=== PATIENT | male | born 1955 | race Hispanic/Latino ===

== ENCOUNTER → 2017-05-09 | Outpatient (CLI) | payer OTHER ==
[~2017-05-09] MED LIST: ACTOS30 MG PO; AMLODIPINE BESY10 MG PO; ASPIRIN81 MG PO; DOXYCYCLINE HY100 MG PO; GLIMEPIRIDE4 MG PO; HYDROCHLOROTHIA25 MG PO; KOMBIGLYZE XR1 EAC2 PO; METOPROLOL TART50 MG PO; VASCEPA PO; ZOCOR40 MG PO
--- NOTE | 2017-05-09 12:53 | Diagnostic Imaging Report ---
PROCEDURE: Frontal and lateral views of the chest. COMPARISON: Chest 2 views 10/30/2013. INDICATIONS: MID BACK PAIN FINDINGS: Lines/tubes: None. Lungs: The lungs are well inflated and clear. There is no evidence of pneumonia or pulmonary edema. Pleura: There is no pleural effusion or pneumothorax. Heart and mediastinum: The heart and the mediastinum are normal. Bones: No acute bony abnormality. IMPRESSION: No acute radiographic abnormality. Dictated by: Reji Lujan M.D. on 05/09/2017 at 13:03 Electronically approved by: Reji Lujan M.D. on 05/09/2017 at 13:03
== END ==
LOC: RAD 12:12
PROVIDERS: ATTEND Internal Medicine
DX: G47.33 Obstructive sleep apnea (adult) (pediatric) (principal)
CPT/HCPCS: 71046

== ENCOUNTER → 2018-02-06 | Outpatient (CLI) | payer OTHER ==
--- NOTE | 2018-02-28 15:50 | Polysomnography ---
DATE OF STUDY: February 06, 2018 TITRATION POLYSOMNOGRAM REFERRING PHYSICIAN: Dr. Cristopher Duron. HISTORY: Mr. Zuniga is a pleasant 62-year-old gentleman with snoring and apneas during sleep. The patient had a home sleep study on November 02, 2016 where he was found with obstructive sleep apnea. The apnea-hypopnea index was 12 events per hour. The lowest oxygen saturation was 78% on that study. The patient has past medical history of diabetes, retinopathy, chronic kidney disease, GERD, polyneuropathy, coronary artery disease and stent, anemia. Current medications may include hydrochlorothiazide, Zocor, Glimepiride, Kombiglyze, aspirin, metoprolol, amlodipine, Plavix, lisinopril. The patient's BMI is 36.8. [place] sleepiness scale score is 1. Patient presents for a titration polysomnogram. FINDINGS: Polysomnogram demonstrated total sleep time of 279.5 minutes with sleep efficiency of 88.4. CPAP was initiated at 6 cm of water pressure and incrementally increased to 16 cm of water. Due to central apneas, BiPAP was initiated at pressure of 11/7 cm of water, and this had to be ramped down to 9/5 cm of pressure due to initial intolerance. Due to more central apneas, a backup rate of 12 was given, and the patient ended study with BiPAP 15/10 cm of water, backup rate of 12, ResMed AirFit F10 large full face mask, and heated humidifier. Sleep apnea was optimized at final setting of 15 cm of IPAP and 10 cm of EPAP where the apnea-hypopnea index was 0 events per hour and lowest oxygen saturation was 92%. Of note, there were no supine sleep significantly studied during this test, but the patient had REM on the side position using 14 cm of IPAP and 8 cm of EPAP with excellent improvement in sleep EEG. A total of 407 periodic limb movements in sleep were noted for a periodic limb movement sleep index of 64.3 events per hour. Multiple PLMS were seen early in the study and did not end until 4:26 a.m. Of note, the PLMS were of minimal amplitude and minimally visible on video, and did not decompose or defragment the sleep EEG. Single lead EKG analysis was unremarkable. INTERPRETATION: This overnight positive airway pressure titration study revealed: 1. Significant improvement in terms of alleviation of obstructive sleep apnea at the optimal BiPAP pressure of 15 cm of IPAP and 10 cm of EPAP, backup rate of [address] mode, ResMed AirFit F10 large full face mask and heated humidifier. The same setting is recommended for use during sleep. 2. Treatment emergent central sleep apnea. BiPAP ST mode were added to treat this, and are recommended as above. this. 3. Periodic limb movements in sleep may be seen during PAP titration and may subside after compliant use of PAP. Periodic limb movement disorder (PLMS disorder) can be associated with secondary conditions such as restless leg syndrome, iron deficiency anemia, electrolyte imbalance such as hypomagnesemia and certain medications. If is associated with clinical sleep disturbance or complaint of daytime fatigue after compliant use of BiPAP, further evaluation and management of these factors may be helpful. MD MARYCARMEN Fu Certified in Sleep Medicine Job#: [id number] GH MTDD
== END ==
LOC: SLEEP 20:05
DX: G47.33 Obstructive sleep apnea (adult) (pediatric) (principal)
CPT/HCPCS: 95811

== ENCOUNTER → 2018-08-06 | Outpatient (CLI) | payer OTHER ==
--- NOTE | 2018-08-06 09:18 | Diagnostic Imaging Report ---
Abdomen, one view dated 08/06/2018. History: Anemia. 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 Patient was unable to tolerate the enema tip. Procedure canceled at the patient's request. The intestinal gas pattern is nonobstructive. There no masses or abnormal calcifications. The osseous structures reveal degenerative changes at L1 and L2 with a marginal osteophyte. IMPRESSION: No acute abdominal abnormality. Signed by: Dr. Farhat Kevin DO on 08/06/2018 9:15 AM
== END ==
LOC: DX 08-03 08:36
PROVIDERS: ATTEND Internal Medicine Gastroenterology
DX: T81.9XXA Unspecified complication of procedure, initial encounter (principal); D64.9 Anemia, unspecified
CPT/HCPCS: 74018

== ENCOUNTER → 2019-01-02 | Outpatient (CLI) | payer OTHER ==
--- NOTE | 2019-01-02 17:47 | Diagnostic Imaging Report ---
EXAMINATION: CHEST 2 VIEWS INDICATION: Obstructive sleep apnea COMPARISON: Chest radiograph of 05/09/2017 FINDINGS: LINES/TUBES:None LUNGS:The lungs are moderately inflated. No focal consolidation or pulmonary edema. PLEURA:No pleural effusion or pneumothorax. MEDIASTINUM:Cardiomediastinal silhouette is stably enlarged. BONES/SOFT TISSUES:No acute osseous injury. ABDOMEN:No free air under the diaphragm. IMPRESSION: No focal pneumonia or pulmonary edema. Stable cardiomegaly. Signed by: Venkata Arboleda MD on 01/02/2019 5:44 PM
== END ==
LOC: RAD 16:59
PROVIDERS: ATTEND Internal Medicine
DX: G47.33 Obstructive sleep apnea (adult) (pediatric) (principal)
CPT/HCPCS: 71046

== ENCOUNTER 2019-02-03 09:25 | Emergency (ER) | payer OTHER ==
[~2019-02-03] VITALS: Ht 170.2 cm; Wt 105.7 kg
--- OUTSIDE RECORDS SUMMARY | 2019-02-03 09:29 | XMS REPORT ---
[facility] Address Unknown Phone Unavailable Care Team Providers Care Residential Leasing Agent Name Role Phone UMU GUEVARA Unavailable Unavailable ELIZABETH PARDO Unavailable Unavailable Problems This patient has no known problems. Allergies, Adverse Reactions, Alerts This patient has no known allergies or adverse reactions. Medications This patient has no known medications. Results Test Description Test Time Test Comments Text Results Atomic Results Result Comments CHEST 2 VIEWS 2019-01-02 17:43:00 [place] [address] Patient Name: ABBY MELGOZA MR #: [id number] : 1955 Age/Sex: 63/M Req #: [id number] Adm Physician: Ordered by: UMU GUEVARA MD Report #: [id number] Location: [facility] Room/Bed: Procedure: [id number] DX/CHEST 2 VIEWS Exam Date: Exam Time: REPORT STATUS: Signed EXAMINATION: CHEST 2 VIEWS INDICATION: Obstructive sleep apnea COMPARISON: Chest radiograph of 05/09/2017 FINDINGS: LINES/TUBES:None LUNGS:The lungs are moderately inflated. No focal consolidation or pulmonary edema. PLEURA:No pleural effusion or pneumothorax. MEDIASTINUM:Cardiomediastinal silhouette is stably enlarged. BONES/SOFT TISSUES:No acute osseous injury. ABDOMEN:No free air under the diaphragm. IMPRESSION: No focal pneumonia or pulmonary edema. Stable cardiomegaly. Signed by: Emily Parker MD on 01/02/2019 5:44 PM Dictated By: EMILY PARKER MD 43 Transcribed By: MARIO on 01/02/191743 COPY TO: UMU GUEVARA MD ABDOMEN-1VIEW (KUB) 2018-08-06 08:41:00 [place] [address] Patient Name: ABBY MELGOZA MR #: [id number] : 1955 Age/Sex: 63/M Req #: [id number] Adm Physician: Ordered by: ELIZABETH PARDO MD Report #: [id number] Location: DX Room/Bed: Procedure: [id number] DX/ABDOMEN-1VIEW (KUB) Exam Date: 08/06/18 Exam Time: 0730 REPORT STATUS: Signed Abdomen, one view dated 08/06/2018. History: Anemi a. 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 Patient was unable to tolerate the enema tip. Procedure canceled at the patient's request. The intestinal gas pattern is nonobstructive. There no masses or abnormal calcifications. The osseous structures reveal degenerative changes at L1 and L2 with a marginal osteophyte. IMPRESSION: No acute abdominal abnormality. Signed by: Dr. Scott Kevin DO on 08/06/2018 9:15 AM Dictated By: SCOTT KEVIN DO 4 Transcribed By: MARIO on 08/06/18914 COPY TO: LEIZABETH PARDO MD CHEST [address] [facility] [address] [place] [address] Patient Name: ABBY MELGOZA MR #: [id number] : 1955 Age/Sex: 62/M Req #: [id number] Adm Physician: Ordered by: UMU GUEVARA MD Report #: [id number] Location: [facility] Room/Bed: Procedure: [id number] DX/CHEST 2 VIEWS Exam Date: 05/09/17 Exam Time: 1210 REPORT STATUS: Signed PROCEDURE: Frontal and lateral views of the chest. COMPARISON: Chest 2 views 10/30/2013. INDICATIONS: MID BACK PAIN FINDINGS: Lines/tubes: None. Lungs: The lungs are well inflated and clear. There is no evidence of pneumonia or pulmonary edema. Pleura: There is no pleural effusion or pneumothorax. Heart and mediastinum: The heart and the mediastinum are normal. Bones: No acute bony abnormality. IMPRESSION: No acute radiographic abnormality. Dictated by: Paula Byers M.D. on 05/09/2017 at 13:03 Electronically approved by: Paula Byers M.D. on 05/09/2017 at 13:03 Dictated By: PAULA BYERS MD 1303 Transcribed By: REYNA on 05/09/17 1303 COPY TO: UMU GUEVARA MD
--- OUTSIDE RECORDS SUMMARY | 2019-02-03 09:29 | XMS REPORT | Summary of Care ---
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 Name Role Phone Cristopher Duron MD PCP Unavailable Reason for Visit * Reason Comments Cardiology Follow-up abnormal EKG Shortness of Breath Chest Pain Palpitations on exertion Leg Swelling Encounter Details Care Team Description Date Type Department Robin Parrish MD [address] [facility] [place], [place] [id number] Cardiology Follow-up (abnormal EKG); Shortness of Breath; Chest Pain; Palpitations (on exertion); Leg Swelling 01/08/2019 Office Visit [facility] Cardiology [address] [facility], [facility] [address] [place] [address] Allergies No Known Allergiesdocumented as of this encounter (statuses as of 01/08/2019) Medications End Date Status Medication Sig Dispensed Refills Start Date Active aspirin EC 81 MG tablet Take 81 mg by 0 mouth daily. Active atorvastatin (LIPITOR) 40 Take 1 Tab by 90 Tab 3 05/30/201 MG tablet mouth daily. 9 Active lisinopril (PRINIVIL, Take 5 mg by 0 ZESTRIL) 5 MG tablet mouth daily. Active hydrochlorothiazide Take 50 mg by 0 (HYDRODIURIL) 50 MG mouth daily. tablet Active simvastatin (ZOCOR) 40 MG Take 40 mg by 0 tablet mouth every evening. Active amlodipine (NORVASC) 10 Take 10 mg by 0 MG tablet mouth daily. Active metoprolol (LOPRESSOR) 50 Take 50 mg by 0 MG tablet mouth daily. Active Saxagliptin-Metformin Take 2 Tabs 0 (KOMBIGLYZE XR) 2.5-1000 by mouth. MG TB24 Active glimepiride (AMARYL) 4 MG Take 8 mg by 0 tablet mouth every morning. Active metformin (GLUCOPHAGE) Take 1,000 mg 0 1000 MG tablet by mouth 2 times daily (with meals). Active furosemide (LASIX) 20 MG Take 20 mg by 0 tablet mouth daily. Active pioglitazone (ACTOS) 30 Take 30 mg by 0 MG tablet mouth daily. Active Rivaroxaban 20 MG Take 20 mg by 90 Tab 3 TABSIndications: Atrial mouth daily. 9 fibrillation, unspecified type (HCCode) 01/08/2019 Discontinued clopidogrel (PLAVIX) 75 Take 75 mg by 0 MG tablet mouth daily. documented as of this encounter (statuses as of 01/08/2019) Active Problems Problem Noted Date SOB (shortness of breath) 01/08/2019 Leg swelling 01/08/2019 Atrial fibrillation (HCCode) 01/08/2019 Alcohol abuse 01/08/2019 Essential hypertension 05/30/2018 Overview: Slightly above goal Being managed by PCP On lisinopril 5 mg PO daily, amlodipine 10 mg PO daily, metoprolol tartrate 50 mg PO BID and HCTZ 50 mg PO daily Plan: 1. Continue current regimen / management by PCP CAD (coronary artery disease) 10/26/2016 Overview: Had NSTEMI in 2017 s/p PCI to LCx - still has nonobstructive disease No new complaints Comes for preop eval prior to colonoscopy (anemia) Has DM and CKD Can go up two flights of stairs Is on ASA, clopidogrel, metoprolol tartrate and simvastatin Plan: 1. Echocardiogram 2. OK to stop clopidogrel given anemia and >1 year lapsed since stent placement 3. Change simvastatin for atorvastatin 40 mg PO daily and recheck lipid profile (as well as CBC, iron profile and other basic labs) in 4-6 weeks 4. Counseled regarding weight loss and lifestyle modification 5. Intermediate risk patient undergoing a low risk procedure - no need for further cardiac testing documented as of this encounter (statuses as of 01/08/2019) Social History Date Tobacco Use Types Packs/Day Years Used Never Smoker Smokeless Tobacco: Never Used Drinks/Week oz/Week Comments Alcohol Use Yes Alcohol Habits Answer Date Recorded How often do you have a drink containing alcohol? Not asked How many drinks containing alcohol do you have on 5 or 6 01/08/2019 a typical day when you are drinking? How often do you have six or more drinks on one Not asked occasion? Sex Assigned at Date Recorded Not on file Industry Job Start Date Occupation Not on file Not on file Not on file Travel End Travel History Travel Start No recent travel history available. documented as of this encounter Last Filed Vital Signs Reading Time Taken Comments Vital Sign 112/75 01/08/2019 9:38 AM CDT Blood Pressure 73 01/08/2019 9:38 AM CDT Pulse - - Temperature - - Respiratory Rate 95% 01/08/2019 9:38 AM CDT Oxygen Saturation - - Inhaled Oxygen Concentration 112.5 kg (248 lb) 01/08/2019 9:38 AM CDT Weight 170.2 cm (5' 7") 01/08/2019 9:38 AM CDT Height 38.84 01/08/2019 9:38 AM CDT Body Mass Index documented in this encounter Patient Instructions * Patient Instructions* Robin Parrish MD - 01/08/2019 9:40 AM CDT Continue xarelto Schedule follow up with Nephrology Check weight daily Lab work here today Return in 6 weeks documented in this encounter Progress Notes * Robin Parrish MD - 01/08/2019 9:40 AM CDT Robin Parrish MD PhD [employer] Professorhigh lighter Section of Cardiology [address] [place] [address] Date: January 08, 2019 Patient Name: Abby Zuniga Patient Date of : 1955 Chief Complaint: Chief Complaint Patient presents with Cardiology Follow-up abnormal EKG Shortness of Breath Chest Pain Palpitations on exertion Leg Swelling History: History of Present Illness: Abby Znuiga is a 63 y.o. male with PMH of DM, HTN, HLD, CAD, had NSTEMI and PCI to LCx and non-obstructive LAD disease at [facility] in 2017. Presents as follow up. Follows with Dr. Rowell, last seen 2018. He says about 3 weeks ago went to his PCP for chest tightness and shortness of b reath. Has also been gaining more weight. He says almost 30 lbs in 2 months, but based on our scale he gained 7 lbs in 8 months. Was told he had atrial fibrilla tion and should see his leasing assistant. He is a little unclear which medications a re new and what he was taking before. But he has a bottle of Xarelto with him fo r 30 days with no refills. Is taking metoprolol 50 mg and furosemide 20 mg whic h he just filled a few days ago. His is unsure if this is a new medication for h im. He follows with a Distributed Energy Systems Consultant and has an appointment scheduled in 3 weeks. He says he has been taking his medications. No further chest pain/tightness sinc e 3 weeks ago, but still more short of breath with exertion than he was a few mo nths ago. Reports some orthopnea, some more swelling in his legs. Does drink a l ot of water as he is outside working doing [employer]. Also drinks a lot of alc ohol, at least 5 beers/day. No drug use. He is unable to provide much informatio n regarding his kidney function. Current Medications: Current Outpatient Medications Medication Sig Dispense Refill amlodipine (NORVASC) 10 MG tablet Take 10 mg by mouth daily. aspirin EC 81 MG tablet Take 81 mg by mouth daily. atorvastatin (LIPITOR) 40 MG tablet Take 1 Tab by mouth daily. 90 Tab 3 furosemide (LASIX) 20 MG tablet Take 20 mg by mouth daily. glimepiride (AMARYL) 4 MG tablet Take 8 mg by mouth every morning. hydrochlorothiazide (HYDRODIURIL) 50 MG tablet Take 50 mg by mouth daily. lisinopril (PRINIVIL, ZESTRIL) 5 MG tablet Take 5 mg by mouth daily. metformin (GLUCOPHAGE) 1000 MG tablet Take 1,000 mg by mouth 2 times daily ( with meals). metoprolol (LOPRESSOR) 50 MG tablet Take 50 mg by mouth daily. pioglitazone (ACTOS) 30 MG tablet Take 30 mg by mouth daily. Rivaroxaban 20 MG TABS Take 20 mg by mouth daily. 90 Tab 3 Saxagliptin-Metformin (KOMBIGLYZE XR) 2.5-1000 MG TB24 Take 2 Tabs by mouth. simvastatin (ZOCOR) 40 MG tablet Take 40 mg by mouth every evening. No current facility-administered medications for this visit. Past Medical History: Past Medical History: Diagnosis Date CAD (coronary artery disease) Diabetes mellitus type 2 in nonobese (HCCode) Hyperlipidemia Hypertension Social History: Social History Tobacco Use Smoking status: Never Smoker Smokeless tobacco: Never Used Substance Use Topics Alcohol use: Yes Drinks per session: 5 or 6 Family History: Family History Problem Relation Name Age of Onset Diabetes Mother Colon Cancer Father Diabetes Brother Review of Systems: A full 10-system review of systems was performed and was nega tive unless stated otherwise in the HPI. Negative except chest tightness, edema, orthopnea, lower extremity swelling Examination: BP 112/75 | Pulse 73 | Ht 5' 7" (1.702 m) | Wt 248 lb (112.5 kg) | SpO2 95% | BMI 38.84 kg/m General appearance alert, cooperative, no distress, appears stated age Neck Normal carotid upstroke, no bruits, difficult to assess JVD large neck Lungs clear to auscultation bilaterally Chest wall no tenderness Heart regular rate and rhythm, S1, S2 normal, no murmur, click, rub or gallop Abdomen soft, non-tender. Bowel sounds normal Extremities 2+ b/l lower extremity edema Pulses 2+ and symmetric Skin Skin color, texture, turgor normal. No rashes or lesions Neurologic Non focal Data: Laboratory Testing: Results for orders placed or performed in visit on 06/05/18 ECHO, COMPLETE Result Value Ref Range REPORT [facility] Echocardiography Report Pat.Name: ABBY ZUNIGA Pat.ID: [id number] .Date: 06/05/2018 Refer.MD: LAN CAMARILLO Exam Time: 1:55:00 PM Study Type:Routine Echo Height: 67in Weight: 241lb BSA: 2.19 m2 Age: 11 1955,63Y Sex: MALE BP: 142/85 HR: 73 bpm Sonogrphr: MARCELLO Ayala Pat. Stat.:Outpatient Echo Event ID:[id number] [facility] Order ID: [id number] Reason for Study:Cardiac evaluation, Chest pain, LV function ass essment History / Clinical:CAD, HTN, CKD Procedures:[id number],COMPLETE, Optison contrast 3 ml ++++++++++++++++++++++++++++++++++++ SUMMARY: ++++++++++++++++++++++++++++++++++++ 1. Normal LV chamber size. Normal wall thickness. LV endocardium is adequately visualized with IV contrast. Normal overall LV systolic function. No apparent segmental wall motion abnormalities. Overall LV systolic function normal by available views. LVEF by quantitative assessment is normal (> 60%). Degree (grade) of diastolic dysfunction is indeterminate. 2. RV is not well seen in the apical views. In the limited views, the RV is normal in size and function. 3. LA size is normal. RA cavity size is normal. 4. A trace of tricuspid regurgitation. Unable to estimate peak systolic PA pressure; inadequate TR velocity signal. The estimated RA pressure by IVC dynamics 0-5 mm Hg. No prior exam available for comparison. ++++++++++++++++++++++++++++++++++++ FINDINGS: ++++++ ++++++++++++++++++++++++++++++ Rhythm/BP: Regular sinus rhythm during the exam. LV: Normal LV chamber size. Normal wall thickness. LV endocardium is adequately visualized with IV contrast. Normal overall LV systolic function. No apparent segmental wall motion abnormalities. Overall LV systolic function normal by available views. LVEF by quantitative assessment is normal (> 60%). Degree (grade) of diastolic dysfunction is indeterminate. LA: LA size is normal. RV: RV is not well seen in the apical views. In the limited views, the RV is normal in size and function. RA: RA cavity size is grossly normal. AV: Mild AoV thickening and calcification. No evidence of aortic regurgitation. No evidence of aortic stenosis. Tri-leaflet Aortic Valve. MV: Mild MV leaflet thickening. No evidence of mitral regurgitation. Mild mitral annular calcification. TV: A trace of tricuspid regurgitation. TV structure is grossly normal. Unable to estimate peak systolic PA pressure; inadequate TR velocity signal. PV: A trace of pulmonary regurgitation. PV is not well visualized. AO: Aortic root size (Sinus of Valsalva diameter) is normal. Proximal ascending aorta size is normal. Pericard: No significant pericardial effusion is visualized. Systemic Veins: The estimated RA pressure by IVC dynamics 0-5 mmHg. Comparison: No prior exam available for comparison. Quality: Technically difficult exam. Adequate endocardial visualization with use of IV echo contrast. ++++++++++++++++++++++++++++++++++++ MEASUREMENTS: ++++++++++++++++++++++++++++++++++++ 2D Left Ventricle LVIDd 5.5 cm (3.6-5.2) LV CO 6.2 l/min LVIDs 3.8 cm (2.3-3.9) LV CI 2.8 l/m/m2 LV EF B iplane LVEDV 130.1 ml (65-193) LV EF 64.9 % (63-77) LVESV 45.6 ml LV SV 84.5 ml LA Biplane LA VolBP 57.4 ml Index 26.2 ml/m2 Ventricular Septum IVSd 1 cm (0.6-1.1) LVPW LVPWd 1 cm (0.6-1.1) Aorta Ao Rtd 3.4 cm (1.7-3.4) Index 1.6 cm/m2 Ao Asc 3.7 cm (2.1-3.4) LVOT LVOT 2.3 cm Ratios LA/Ao 1.5 MMODE TAPSE TAPS Dim 2.6 cm DOPPLER AV Forward Flow AV pkVel 151 cm/s (100-170) AV TVI 35.4 cm AV mnVel 107 cm/s Area (TVI) 3.2 cm2 (3-5) AV pkPG 9 mmHg Area (Ruben) 3.6 cm2 AV mnPG 5 mmHg MV Forward Flow MV pkE 117 cm/s (60-130) MV E/A 1 MV pkA 117 cm/s LVOT LVOT SV 112 cc LVOT TVI 26.9 cm LVOT MnVel 85.4 cm/s LVOT PkVel 132 cm/s LVOT MnPG 3 mmHg LVOT PkPG 7 mmHg Left Ventricle LmLat Em 7.9 cm/s LmLat E/Em 14.8 LmSep Em 5.4 cm/s LmSep E/Em 21.8 Right Ventricle RbAnt Sm 14.7 cm/s Signed 06/06/2018 12:50 PM Debra Cantu M.D. EJECTION FRACTION RESULT Result Value Ref Range Ejection Fraction 60 55 - 75 % Cardiology Studies: Electrocardiogram: Atrial fibrillation Echocardiogram: 06/05/18 SUMMARY: ++++++++++++++++++++++++++++++++++++ 1. Normal LV chamber size. Normal wall thickness. LV endocardium is adequately visualized with IV contrast. Normal overall LV systolic function. No apparent segmental wall motion abnormalities. Overall LV systolic function normal by available views. LVEF by quantitative assessment is normal (> 60%). Degree (grade) of diastolic dysfunction is indeterminate. 2. RV is not well seen in the apical views. In the limited views, the RV is normal in size and function. 3. LA size is normal. RA cavity size is normal. 4. A trace of tricuspid regurgitation. Unable to estimate peak systolic PA pressure; inadequate TR velocity signal. The estimated RA pressure by IVC dynamics 0-5 mm Hg. No prior exam available for comparison. Cardiac Stress Testing: Cardiac Catheterization: 09/19/16 from [facility] LVEDP normal. Co-dominant system. Left main normal, LAD with 40-50% lesions proximally, LCx with 90% lesion in the mid segment and 70% lesion distally. Intervention was performed of the mid-LCx lesion starting with pre-stent dilation with the [employer]ive [employer]tronic NC Stormer 2.5 x 11 m m balloon with inflation up to 18 mmHg and inflation time up to 30 sec. A 2.5 x 18 mm Resolute integrity stent was then deployed successfully. This was followed by post-stent dilation with Achaogen Emerge 3.0 x 12 mm and 3.5 x 12 mm balloo ns with inflation up to 20 mitch and inflation time up to 15 sec. At the end of procedure, flow was improved from RADHA 2 to RADHA 3 flow. Radiology Studies: Impression: Abby Zuniga is a 63 y.o. male with a history of: Patient Active Problem List Diagnosis CAD (coronary artery disease) Essential hypertension SOB (shortness of breath) Leg swelling Atrial fibrillation (HCCode) Alcohol abuse Plan: Problem Sob (Shortness of Breath) Leg Swelling Atrial Fibrillation (Hccode) Alcohol Abuse Shortness of breath is probably due to volume overload with some contribution fr om persistent atrial fibrillation. Had fairly normal TTE in May, no similar symp toms to his NSTEMI in 2017. He does have renal dysfunction and follows a Nephrol ogist, I don't have details on this but has an appointment in 3 weeks. - Atrial fibrillation is currently rate controlled in clinic today. Likely has been in a fib since PCP visit 3 weeks ago, so persistent atrial fibrillation - CHADS-VASc score of 3. Will continue metoprolol for rate control for now, and will continue Xarelto for now since he was started on this but may need to be ch anged depending on renal function. - Continue diuresis and re-evaluate symptoms. He just filled furosemide 20 mg a few days ago. Will continue this or if no improvement or weight gain, will incre ase to 40 mg daily - Obtain chemistry and BNP. - He also drinks at least 5 beers daily and I discussed the importance of reduci ng alcohol consumption. - Otherwise continue aspirin, atorvastain for CAD. PCI to mid LCx in 2017 with s ome residual non-obstructive disease in LAD RTC in 4-6 weeks to see if improvement in symptoms with diuresis Thank you for referring this patient for consultation and allowing me to partici bray in his care. Please do not hesitate to call with any questions. documented in this encounter Plan of Treatment Care Team Description Date Type Specialty Plana Lan Swanson MD [address] [place], [place] [id number] 02/20/2019 Office Visit Cardiology Date/Time Name Type Priority Associated Diagnoses 01/08/2019 9:52 AM CDT ELECTROCARDIOGRAM ECG Routine Chest pain, unspecified COMPLETE type SOB (shortness of breath) Palpitations Leg swelling Order Schedule Name Type Priority Associated Diagnoses Ordered: 01/08/2019 BASIC METABOLIC PANEL Lab Routine Atrial fibrillation, unspecified type (HCCode) Ordered: 01/08/2019 BRAIN NATRIURETIC PEPTIDE Lab Routine Atrial fibrillation, unspecified type (HCCode) Health Maintenance Due Date Last Done Comments COLON CANCER SCREENIN1957 COLONOSCOPY TETANUS SHOT (ADULT) 1972 BMI FOLLOW UP PLAN 1975 HEPATITIS C SCREENING 1975 HIV SCREENING 1975 FLU VACCINE > 6 MONTHS 11/08/2018 documented as of this encounter Procedures Comments Procedure Name Priority Date/Time Associated Diagnosis ELECTROCARDIOGRAM Routine 01/08/2019 Chest pain, unspecified COMPLETE 9:52 AM CDT type SOB (shortness of breath) Palpitations Leg swelling documented in this encounter Results Not on filedocumented in this encounter Visit Diagnoses Diagnosis SOB (shortness of breath) - Primary Shortness of breath Chest pain, unspecified type Palpitations Leg swelling Swelling of limb Atrial fibrillation, unspecified type (HCCode) Alcohol abuse Alcohol abuse, unspecified documented in this encounter Insurance Type Payer Benefit Subscriber ID Effective Phone Address Plan / Dates Group [facility] xxxxxxxxxx 2018-P [facility] [address] [address] [place] [address] documented as of this encounter
[2019-02-03] MEDS ORDERED: HYDROCODONE/APAP 5MG-325MG TAB PO ONE (09:45)
[2019-02-03] MEDS ORDERED: DIAZEPAM 5 MG TAB PO ONE (09:45)
[2019-02-03 10:43] VITALS: BP 108/80
== END 2019-02-03 10:46 | disposition home or self-care (01) ==
LOC: ER 09:25
DX: S39.012A Strain of muscle, fascia and tendon of lower back, initial encounter (principal); I10 Essential (primary) hypertension; E11.9 Type 2 diabetes mellitus without complications; I48.91 Unspecified atrial fibrillation; E78.5 Hyperlipidemia, unspecified; I25.2 Old myocardial infarction
CPT/HCPCS: 99283

== ENCOUNTER 2019-11-18 09:50 | Emergency (ER) | payer OTHER ==
[~2019-11-18] VITALS: Ht 170.2 cm; Wt 105.7 kg
[2019-11-18] MEDS ORDERED: METOPROLOL TARTRATE 50 MG TAB PO ONE (10:15)
--- NOTE | 2019-11-18 10:36 | Emergency Department Note ---
History of Present Illnes History of Present Illness Chief Complaint: General Medicine Complaints History of Present Illness This is a 64 year old male with complaints of right shoulder and back pain that started after doing some work on his truck yesterday. Patient is very expressive with his complaints of pain. Patient reports that he has not taking any pain medication at home for this problem. Patient does report a remote history of pneumonia but nothing recent. Patient does have a history of A-Fib but is generally a poor historian. 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: No Onset (how long ago): day(s) (1) Location: R posterior shoulder Quality: Sharp Radiation: Reports non-radiation Severity: moderate Onset quality: gradual Duration (how long): day(s) (1) Timing of current episode: constant Progression: worsening Chronicity: new Context: Denies recent illness, Denies recent surgery, Denies recent immobilization, Denies recent travel, Denies trauma/injury, Denies new medications, Denies hx of DVT/PE, Denies non-compliance w/ medications Relieving factors: immobilization Exacerbating factors: movement Associated symptoms: Reports denies other symptoms Past Medical/Family History Physician Review I have reviewed the patient's past medical and family history. Any updates have been documented here. Past Medical History Recent Fever: No Clinical Suspicion of Infectio: No New/Unexplained Change in Ment: No Past Medical History: Hypertension, Diabetes, [place], A-Fib, Hyperlipedemia Other Medical History: HIGH CHOLESTEROL. Past Surgical History: PCI Other Surgery: ABDOMINAL TRAUMA SX PCI WITH STENTS Social History Smoking Cessation: Never Smoker Physically hurt or threatened: No Family History Family history of heart diseas: Yes Other Last Tetanus: UTD Review of Systems Review of Systems Constitutional: Reports no symptoms EENTM: Reports no symptoms Cardiovascular: Reports no symptoms Respiratory: Reports no symptoms Gastrointestinal: Reports no symptoms Genitourinary: Reports no symptoms Musculoskeletal: Reports no symptoms, Reports back pain (Right upper), Reports joint pain (Right shoulder), Reports muscle pain (R shoulder); Denies neck pain Integumentary: Reports no symptoms Neurological: Reports no symptoms Psychological: Reports no symptoms Endocrine: Reports no symptoms Hematological/Lymphatic: Reports no symptoms Physical Exam Related Data Allergies: Coded Allergies: Penicillins (Verified Allergy, Unknown, 02/03/19) Triage Vital Signs Vital Signs Date Time Temp Pulse Resp B/P (MAP) Pulse Ox O2 Delivery O2 Flow Rate FiO2 11/18/19 10:01 61 18 136/102 99 Room Air Physical Exam CONSTITUTIONAL Constitutional: Present well-developed, Present well-nourished HENT HENT: Present normocephalic, Present atraumatic, Present oropharynx clear/moist, Present nose normal HENT L/R: Present left ext ear normal, Present right ext ear normal EYES Eyes: Reports PERRL, Reports conjunctivae normal NECK Neck: Present ROM normal PULMONARY Pulmonary: Present effort normal, Present breath sounds normal CARDIOVASCULAR Cardiovascular: Present regular rhythm, Present heart sounds normal, Present capillary refill normal, Present tachycardia GASTROINTESTINAL Abdominal: Present soft, Present nontender, Present bowel sounds normal GENITOURINARY Genitourinary: Present exam deferred SKIN Skin: Present warm, Present dry MUSCULOSKELETAL Musculoskeletal: Present ROM normal, Present tenderness (R posterior shoulder), Present other (ROM normal but with significant pain on any motion at the right shoulder. R arm neurovacularly intact.) NEUROLOGICAL Neurological: Present alert, Present oriented x 3, Present no gross motor or sensory deficits PSYCHOLOGICAL Psychological: Present mood/affect normal, Present judgement normal Results Laboratory Lab results reviewed: Yes Imaging Imaging results reviewed: Yes Diagnostics Tests Diagnostic test(s) reviewed: Yes Procedures 12 Lead ECG Interpretation ECG Interpretation : Pre Sales Systems Engineer: Interpreted by ED physician Date: Nov 18, 2019 Rhythm: atrial fibrillation Rate: tachycardia BPM: 134 QRS axis: normal Conduction: LAFB ST segments normal: Yes T waves normal: Yes Clinical Impression: dysrhythmia - atrial Assessment & Plan Medical Decision Making MDM 64-year-old male presents for right-sided posterior shoulder pain started after working his truck yesterday. He states he's had this pain before when he had a pneumonia. He denies shortness of breath, cough, any other concerns. He states he did not take any of his medications. Initially presents in atrial fibrillation and RVR and was given his home dose of metoprolol which largely resolved this. Differential includes ACS versus skilled skeletal pain versus rotator cuff injury versus pneumonia. Pulmonary embolism felt to be unlikely given no symptoms of shortness of breath or chest pain and overall clinical picture. Cardiopulmonary workup is significant for creatinine 1.3. Additionally BNP is 300. He was given 500 mL NS and made aware of his results. He will follow up with primary care provider return for worsening symptoms. Additionally referral for orthopedics was placed for concern for rotator cuff injury. Patient is appropriate for discharge. Reassessment Reassessment time: 12:41 Reassessment Well appearing, NAD Assessment & Plan Final Impression: (1) Shoulder pain Depart Disposition: HOME, SELF-CARE Last Vital Signs Date Time Temp Pulse Resp B/P (MAP) Pulse Ox O2 Delivery O2 Flow Rate FiO2 11/18/19 10:01 61 18 136/102 99 Room Air Home Meds Reported Medications Pioglitazone Hcl (ACTOS) 30 Mg Tablet, 30 MG PO DAILY 09/19/14 Doxycycline Hyclate (DOXYCYCLINE HYCLATE) 100 Mg Capsule, 100 MG PO BID, CAP 09/19/14 Amlodipine Besylate (AMLODIPINE BESYLATE) 10 Mg Tablet, 10 MG PO DAILY, #30 TAB 09/19/14 Hydrochlorothiazide (HYDROCHLOROTHIAZIDE) 25 Mg Tablet, 25 MG PO DAILY, #30 TAB 09/19/14 Metoprolol Tartrate (METOPROLOL TARTRATE) 50 Mg Tablet, 50 MG PO BID, TAB 09/19/14 Aspirin (ASPIRIN) 81 Mg Tab.chew, 81 MG PO DAILY 09/19/14 [Vascepa] No Conflict Check, 1 GM PO DAILY 09/19/14 Glimepiride (GLIMEPIRIDE) 4 Mg Tablet, 8 MG PO DAILY 09/19/14 Saxagliptin Hcl/Metformin Hcl (KOMBIGLYZE XR 2.5-1,000 MG TAB) 1 Each Tbmp.24hr, PO HS 09/19/14 Simvastatin (ZOCOR) 40 Mg Tablet, 40 MG PO DAILY, #30 TAB 09/19/14 Medications in the ED Metoprolol Tartrate 50 mg ONCE ONCE PO ; Start 11/18/19 at 10:15; Stop 11/18/19 at 10:16; Status PONCEV MARÍA ELENA MCWILLIAMS MD Nov 18, 2019 10:17
--- NOTE | 2019-11-18 10:39 | Diagnostic Imaging Report ---
EXAMINATION: CHEST SINGLE (PORTABLE) INDICATION: Shortness of breath COMPARISON: Chest are graft 01/02/2019 FINDINGS: LINES/TUBES:None LUNGS:The lungs are well-inflated. No focal consolidation or pulmonary edema. PLEURA:No pleural effusion or pneumothorax. MEDIASTINUM:Cardiomediastinal silhouette is stably enlarged. BONES/SOFT TISSUES:No acute osseous injury. ABDOMEN:No free air under the diaphragm. IMPRESSION: Cardiomegaly. No focal pneumonia or pulmonary edema. Signed by: Venkata Arboleda MD on 11/18/2019 10:36 AM
[2019-11-18 10:42] LABS: BASOPHILS % 0.4 % (0.0-1.0); EOSINOPHILS # (AUTO) 0.1 (0.0-0.4); EOSINOPHILS % 1.9 % (0.0-6.0); HEMOGLOBIN 13.6 g/dL (14.0-18.0); LYMPHOCYTES # (AUTO) 1.2 (1.0-3.2); LYMPHOCYTES % 16.8 % (18.0-39.1); MEAN CORPUSCULAR HEMOGLOBIN 29.4 pg (28-32); MEAN CORPUSCULAR HGB CONC 32.4 g/dL (31-35); MEAN CORPUSCULAR VOLUME 90.7 fL (81-99); MONOCYTES # (AUTO) 0.8 (0.2-0.8); MONOCYTES % 10.5 % (4.4-11.3); NEUTROPHILS # (AUTO) 5.1 (2.1-6.9); PLATELET COUNT 253 x10e3/uL (140-360); RED BLOOD COUNT 4.63 x10e6/uL (4.3-5.7); RED CELL DISTRIBUTION WIDTH 13.5 % (11.7-14.4)
[2019-11-18] MEDS ORDERED: ACETAMINOPHEN 325 MG TAB PO ONE (10:45)
--- OUTSIDE RECORDS SUMMARY | 2019-11-18 11:03 | XMS REPORT | Continuity of Care Document ---
Author Author [facility] t Organization [facility] Address [address] [place] [address] Phone Unavailable Care Team Providers Care Retail Selling Floor Leader Name Role Phone PAOLA KHALIL, UMU PCP Jameson Morales Attphys Unavailable Sorin Swanson MD, Billy Montenegro Attphys [phone] Santana MCGILL, Mina Hassan Attphys Karen KHALIL, [facility] Attphys Petey KHALIL, Marita Gonzalez Attphys [phone] Shivani KHALIL, Robin Attphys UMU GUEVARA Attphys Unavailable ELIZABETH PARDO Attphys Unavailable LYUBOV ANGELO Admphys Unavailable Payers Payer Name Policy Type Policy Number Effective Date Expiration Date Yarelis JAUREGUI MARKETPLACEMOLINA MARKETPLACE EXCHANGExxxxxxxxxx xx xxxxxxxx [facility] JAUREGUI EXCHANGEMOLINA MARKETPLACE EXCHANGExxxxxxxxxx2018 -PresentExchange xxxxxxxxxx 2018 00:00:00 [place] Yon[facility] [id number] [facility] Problems Condition Name Condition Details Condition Category Status Onset Date Resolution Date Last Treatment Date Treating Clinician Comments Source Hyperkalemia Hyperkalemia Disease Active 2019-03-23 00:00:00 Zhen Avendano Non-ST elevated myocardial infarction (non-STEMI) Non- ST elevated myocardial infarction (non-STEMI) Disease Active 2016-09-19 00:00:00 Zhen Avendano Allergies, Adverse Reactions, Alerts Allergy Name Allergy Type Status Severity Reaction(s) Onset Date Inacti ve Date Treating Clinician Comments Source Penicillin Allergy to Substance Active 2019-02-03 00:00:00 [facility] Family History Family Member Diagnosis Comments Start Date Stop Date Source Natural mother Diabetes Zhen mitchell Social History Social Habit Start Date Stop Date Quantity Comments Source Sex Assigned At Quan Avendano Alcohol intake 2019-03-23 00:00:00 2019-03-23 00:00:00 Current drinker of alcohol (finding) Zhen Avendano Alcohol Comment 2015-10-17 00:00:00 2015-10-17 00:00:00 occasional Zhen Avendano Smoking Status Start Date Stop Date Source Never smoker Zhen neal Medications Ordered Medication Name Filled Medication Name Start Date Stop Da te Current Medication? Ordering Clinician Indication Dosage Frequency Signature (SIG) Comments Components Source glimepiride (AMARYL) 4 MG tablet 2019-03-24 11:16:56 Yes 8mg QD Take 8 mg by mouth daily before breakfast. Quan Avendano TURMERIC-HERBAL COMPLEX NO.278 ORAL 2019-03-24 11:16:56 Yes 1{capsule} QD Take 1 capsule by mouth every morning. Zhen Avendano omega-3 fatty acids 500 mg capsule 2019-03-24 11:16:56 Y es 1{capsule} QD Take 1 capsule by mouth every morning. Zhen Avendano aspirin (ECOTRIN) 81 MG enteric coated tablet 2019-03-24 11:16:5 6 Yes 81mg QD Take 81 mg by mouth every morning. Zhen Avendano apixaban (ELIQUIS) 5 mg tablet 2019-03-24 11:16:56 Yes 5mg Q.5D Take 5 mg by mouth 2 (two) times a day. Roderick Avendano atorvastatin (LIPITOR) 40 MG tablet 2019-03-24 11:16:56 Yes 40mg QD Take 40 mg by mouth every morning. Zhen mitchell ertugliflozin-sitagliptin (STEGLUJAN) 5-100 mg tablet 2019-03-24 11:16:56 Yes 1{tbl} QD Take 1 tablet by mouth every morning. Zhen Avendano hydroCHLOROthiazide (HYDRODIURIL) 25 MG tablet 2019-03-24 11:16: 56 Yes 25mg QD Take 25 mg by mouth every morning. Zhen Avendano amLODIPine (NORVASC) 10 mg tablet 2016-09-17 00:00:00 2018 00:00:00 No 1{tbl} QD Take 1 tablet by mouth daily. Zhen Avendano metFORMIN (GLUCOPHAGE) 1,000 mg tablet 2016-09-13 00:00:00 Yes 1000mg Q.5D Take 1,000 mg by mouth 2 (two) times a day with meals. Zhen Avendano metoprolol tartrate (LOPRESSOR) 50 mg tablet 2016-09-12 00:00:00 Yes 50mg Q.5D Take 50 mg by mouth 2 (two) times a day with meals. cook hospital food Zhen Avendano LANTUS SOLOSTAR 100 unit/mL injection (pen) 2016 00:00:00 2019-03-23 00:00:00 No 20U QD Inject 20 Units under the skin daily. Zhen Avendano lisinopril (PRINIVIL,ZESTRIL) 5 mg tablet 08-16 00:00:00 2019-03-24 00:00:00 No 5mg QD Take 5 mg by mouth every mornin g. Zhen Avendano Amlodipine Besylate 10 Mg Tablet Amlodipine Besylate 10 Mg Tablet Yes 10 Daily [facility] Aspirin 81 Mg Tab.chew Aspirin 81 Mg Tab.chew Yes 81 Daily [facility] Doxycycline Hyclate 100 Mg Capsule Doxycycline Hyclate 100 Mg Capsule Yes 100 Twice A Day [facility] Glimepiride 4 Mg Tablet Glimepiride 4 Mg Tablet Yes 8 Daily [facility] Hydrochlorothiazide 25 Mg Tablet Hydrochlorothiazide 25 Mg Tablet Yes 25 Daily [facility] Metoprolol Tartrate 50 Mg Tablet Metoprolol Tartrate 50 Mg Tablet Yes 50 Twice A Day [facility] Pioglitazone Hcl (Actos) 30 Mg Tablet Pioglitazone Hcl (Actos) 30 M g Tablet Yes 30 Daily [facility] Saxagliptin Hcl/Metformin Hcl (Kombiglyze Xr 2.5-1,000 Mg Tab) 1 Each Tbmp.24hr Saxagliptin Hcl/Metformin Hcl (Kombiglyze Xr 2.5-1,000 Mg Tab) 1 Each Tbmp.24hr Yes Bedtime [facility] Simvastatin (Zocor) 40 Mg Tablet Simvastatin (Zocor) 40 Mg Tablet Yes 40 Daily [facility] Vascepa Vascepa Yes 1 Daily [facility] Vital Signs Vital Name Observation Time Observation Value Comments Source Systolic blood pressure 2019-03-24 08:22:07 118 mm[Hg] Zhen Avendano Diastolic blood pressure 2019-03-24 08:22:07 83 mm[Hg] Zhen Avendano Heart rate 2019-03-24 08:22:07 80 /min Zhen Avendano Body temperature 2019-03-24 08:22:07 36.94 Veronica [place] Respiratory rate 2019-03-24 08:22:07 18 /min [place] Oxygen saturation in Arterial blood by Pulse oximetry 2018-04 08:22:07 98 /min Zhen Avendano Body height 2019-03-23 17:07:00 170.2 cm Zhen Avendano Body weight 2019-03-23 17:07:00 109.317 kg Zhen Avendano BMI 2019-03-23 17:07:00 37.75 kg/m2 Zhen Avendano Procedures Procedure Date / Time Performed Performing Clinician Sour e POC GLUCOSE 2019-03-24 08:23:00 Lyubov Angelo BASIC METABOLIC PANEL 2019-03-24 05:20:00 Lyubov Angelo HEMOGLOBIN A1C 2019-03-24 05:20:00 Lyubov Angelo CBC HEMOGRAM 2019-03-24 05:20:00 Lyubov Angelo ESTIMATED GFR 2019-03-24 05:20:00 Lyubov Angelo URINE CULTURE 2019-03-23 22:52:00 Lyubov Angelo GRAM STAIN 2019-03-23 22:52:00 Lyubov Angelo POC GLUCOSE 2019-03-23 22:30:00 Lyubov Angelo URINALYSIS SCREEN AND MICROSCOPY, WITH REFLEX TO CULTURE 201 9-12-14 21:00:00 Lyubov Angelo BASIC METABOLIC PANEL 2019-03-23 20:20:00 Lyubov Angelo ESTIMATED GFR 2019-03-23 20:20:00 Lyubov Angelo POC GLUCOSE 2019-03-23 16:36:00 Lyubov Angelo POC GLUCOSE 2019-03-23 15:46:00 Lyubov Angelo ECG 12-LEAD 2019-03-23 15:08:15 Lyubov Angelo POC GLUCOSE 2019-03-23 13:36:00 Lyubov Angelo HC COMPLETE BLD COUNT W/AUTO DIFF 2019-03-23 11:30:00 Damian Jones oc-Telma [facility] Zhen Avendano PROTHROMBIN TIME WITH INR 2019-03-23 11:30:00 Penny Jones-Temla Yadi Avendano PARTIAL THROMBOPLASTIN TIME (PTT) 2019-03-23 11:30:00 Damian Jones oc-Tel[facility] Zhen Avendano COMPREHENSIVE METABOLIC PANEL 2019-03-23 11:30:00 Jones, Penny-A nh [facility] Zhen Avendano LACTIC ACID LEVEL, SEPSIS - NOW AND REPEAT 2X EVERY 3 HOURS 2019-03-23 11:30:00 Lyubov Angelo MAGNESIUM LEVEL 2019-03-23 11:30:00 Damian Jonesoc-Telma Telma Zhen Avendano ESTIMATED GFR 2019-03-23 11:30:00 Karen Penny-Telma [facility] Zhen Avendano ECG 12-LEAD 2019-03-23 10:17:11 Jones, Penny-Telma [facility] Zhen Avendano X-ray of chest, two views 2019-01-02 00:00:00 UMU GUEVARA [facility] Plan of Care Planned Activity Planned Date Details Comments Source Future Scheduled Test 2019-11-09 00:00:00 INFLUENZA VACCINE [code = INFLUENZA VACCINE] Zhen Avendano Future Scheduled Test 2007 00:00:00 COLONOSCOPY SCREEN ING [code = COLONOSCOPY SCREENING] Zhen Avendano Future Scheduled Test 2007 00:00:00 SHINGLES VACCINES (#1) [code = SHINGLES VACCINES (#1)] [facility] Encounters Start Date/Time End Date/Time Encounter Type Admission Type [facility] Facility Care Department Encounter ID Source 2019-04-30 08:27:55 2019-04-30 14:52:31 Office Visit Sonya Montano [facility] [id number] 2019-03-23 00:00:00 2019-03-24 00:00:00 Outpatient PETEY AMIE [facility] [id number] [facility] 2019-02-03 09:25:00 2019-02-03 10:46:00 Departed Emergency Room [facility] [id number] [facility] 2019-01-08 09:31:18 2019-01-08 11:47:45 Office Visit Robin Parrish [facility] [id number] 2019-01-02 16:59:00 2019-01-02 16:59:00 Registered Clinic 3 UMU GUEVARA [facility] [id number] [facility] 2018-08-06 06:54:00 2018-08-06 06:54:00 Registered Clinic 3 ELIZABETH PARDO [facility] [id number] [facility] Results Test Description Test Time Test Comments Results Result Comments Source CHEST SINGLE (PORTABLE) 2019-11-18 10:35:00 [facility] [address] [address] Patient Name: ABBY ZUNIGA MR #: [id number] : 1955 Age/Sex: 64/M Req #: [id number] Adm Physician: Ordered by: María Elena Morales MD Report #: [id number] Location: ER Room/Bed: Procedure: [id number] DX/CHEST SINGLE (PORTABLE) Exam Date: 11/18/19 Exam Time: 0950 REPORT STATUS: Signed EXAMINATION: CHEST SINGLE (PORTABLE) INDICATION: Shortness of breath COMPARISON: Chest are graft 01/02/2019 FINDINGS: LINES/TUBES:None LUNGS:The lungs are well-inflated. No focal consolidation or pulmonary edema. PLEURA:No pleural effusion or pneumothorax. MEDIASTINUM:Cardiomediastinal silhouette is stably enlarged. BONES/SOFT TISSUES:No acute osseous injury. ABDOMEN:No free air under the diaphragm. IMPRESSION: Cardiomegaly. No focal pneumonia or pulmonary edema. Signed by: Emily Parker MD on 11/18/2019 10:36 AM Dictated By: EMILY PARKER MD 1036 Transcribed By: MARIO on 11/18/19 1036 COPY TO: MARÍA ELENA MORALES MD Urine culture 2019-03-25 10:34:07 Test Item Urine culture isolate (test code = 52611-7) Mixed israel 10-4 col/cc Specimen InformationSpecimen Source: UrineSpecimen Site: [facility] [id number] 10:34:07Gram stain resultNo WBC'sOccasional Gram positive rods Comment: Specimen InformationSpecimen Source: UrineSpecimen Site: Clean catch [facility] [id number] 19:56:05* Test Item Value Reference Range Interpretation Comments Ventricular rate (test code = 253) 82 QRSD interval (test code = 260) 82 QT interval (test code = 264) 354 QTC interval (test code = 265) 413 QRS axis 1 (test code = 268) -39 T wave axis (test code = 270) 26 EKG impression (test code = 273) Atrial fibrillation-L eft axis deviation- Anterior infarct (cited on or before 19-SEP-2016)-Abnormal ECG-In automated comparison with ECG of 23-MAR-2019 10:17,-No significant change was found- [facility] MethodistHemoglobin [id number] 08:27:42* Test Item Value Reference Range Interpretation Comments Hemoglobin A1C (test code = 17310-5) 8.0 % 4-5.6 H HbA1c cutoffs for diagnosing diabetes:4.0% - 5.6% = normal5.7% - 6.4% = increased risk for diabetes (prediabetes)9>=6.5% = [id number] for glycemic control (ADA 2016)< 7.0% Target for non adults with diabetes. More or less stringent targets may be appropriate for individual patients. <7.5% Target for Children and adolescents with type 1 diabetes. 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 Interpretation (test code = 40739-2) [facility] [id number] 07:00:24* Test Item Value Reference Range Interpretation Comments Sodium (test code = 2951-2) 139 135- 148 mEq/L Potassium (test code = 2823-3) 4.6 3.5- 5.0 mEq/L Chloride (test code = 2075-0) 104 98- 112 mEq/L CO2 (test code = 8-9) 25 24- 31 mEq/L Anion gap (test code = 83852-2) 10@ANIO 7- 15 mEq/L BUN (test code = 3094-0) 32 mg/dL 8-23 H Creatinine (test code = 2160-0) 1.87 mg/dL 0.7-1.2 H Glucose (test code = 2345-7) 141 mg/dL 65-99 H Calcium (test code = 50881-9) 9.2 mg/dL 8.8-10.2 Lab Interpretation (test code = 76267-4) Abnormal [facility] MethodistEstimated [id number] 07:00:24* Test Item Value Reference Range Interpretation Comments Estimated GFR (test code = 5488) 38 mL/min/1.73 m2 A Catergory Units InterpretationG1 >=90 Normal or highG2 60-89 Mildly lumyozmgcF0g 45-59 Mildly to moderately wlmbzvnvaE5e 30-44 Moderately to severely decreasedG4 15-29 Severely decreasedG5 <15 Kidney failureThe eGFR was calculated using the Chronic Kidney Disease Epidemiology Collaboration (CKD-EPI) equation. Interpretation is based on recommendations of the National Kidney Foundation-Kidney Disease Outcomes Quality Initiative (NKF-KDOQI) published in 2014. Lab Interpretation (test code = 35395-8) Abnormal [facility] iqhbferm1773-04-14 06:31:28* Test Item Value Reference Range Interpretation Comments WBC (test code = 52638-7) 5.97 4.50- 11.00 k/uL RBC (test code = 62012-3) 4.18 m/uL 4.4-6 L HGB (test code = 718-7) 11.7 g/dL 14-18 L HCT (test code = 4544-3) 38.5 % 41-51 L MCV (test code = 787-2) 92.1 fL 82-100 MCH (test code = 785-6) 28.0 pg 27-34 MCHC (test code = 786-4) 30.4 g/dL 31-37 L RDW - SD (test code = 20006-4) 43.5 fL 37-55 MPV (test code = 55050-8) 11.0 fL 8.8-13.2 Platelet count (test code = 77292-6) 211 150- 400 k/uL Nucleated RBC (test code = 96792-7) 0.00 /100 WBC Lab Interpretation (test code = 97749-5) Abnormal Artie MethodistUrinalysis screen and microscopy, with reflex to culture 2019-03-23 23:28:13* Test Item Value Reference Range Interpretation Comments Specimen site (test code = 7518520) Clean catch Color, UA (test code = 5778-6) Straw Appearance, UA (test code = 5767-9) Clear Specific gravity, UA (test code = 5811-5) 1.015 1.001-1.035 pH, UA (test code = 5803-2) 5.0 5.0-8.5 Protein, UA (test code = 89511-7) Negative Negative Glucose, UA (test code = 99826-6) 3+ Negative A Ketones, UA (test code = 2514-8) Negative Negative Bilirubin, UA (test code = 5770-3) Negative Negative Blood, UA (test code = 5794-3) Negative Negative Nitrite, UA (test code = 5802-4) Negative Negative Urobilinogen, UA (test code = 02496-1) <2.0 <2.0 Leukocyte esterase, UA (test code = 5799-2) Negative Negative Epithelial cells, UA (test code = 5787-7) <1 /HPF WBC, UA (test code = 5821-4) 7 0- 1 /HPF H RBC, UA (test code = 56253-3) 1 0- 5 /HPF Bacteria, UA (test code = 46607-7) Few None seen Yeast, UA (test code = 25104-9) None seen Yeast with pseudohyphae, UA (test code = 23106-5) None seen Lab Interpretation (test code = 74293-7) Abnormal [facility] MethodistComprehensive metabolic [id number] 12:16:43* Test Item Value Reference Range Interpretation Comments Sodium (test code = 2951-2) 137 135- 148 mEq/L Potassium (test code = 2823-3) 6.5 3.5- 5.0 mEq/L HH Chloride (test code = 2075-0) 103 98- 112 mEq/L CO2 (test code = 2027-9) 19 24- 31 mEq/L L Anion gap (test code = 66927-1) 15@ANIO 7- 15 mEq/L BUN (test code = 3094-0) 35 mg/dL 8-23 H Creatinine (test code = 2160-0) 2.02 mg/dL 0.7-1.2 H Glucose (test code = 2345-7) 195 mg/dL 65-99 H Calcium (test code = 42597-8) 9.5 mg/dL 8.8-10.2 Protein (test code = 2885-2) 7.7 g/dL 6.3-8.3 Mcxkazp7063.6-7.0 g/dL1 ptab0226.4-7.6 g/dL7 months-0cjzl817.1-7.3 g/dL1-2 .6-7.5 g/dL>3 xuhkx449.0-8.0 g/nY62-7860554.3-8.3 g/dL Albumin (test code = 1751-7) 3.9 g/dL 3.5-5 A/G ratio (test code = 1759-0) 1.0 0.7-3.8 Alkaline phosphatase (test code = 6768-6) 81 U/L 40-129 AST (test code = 1920-8) 15 U/L 10-50 ALT (test code = 1742-6) 21 U/L 5-50 Total bilirubin (test code = 1974-2) 0.3 mg/dL 0-1.2 Lab Interpretation (test code = 43189-9) Abnormal [facility] MethodistMagnesium kkyep6048-20-91 12:16:43* Test Item Value Reference Range Interpretation Comments Magnesium (test code = 23420-8) 2.2 mg/dL 1.6-2.4 Artie MethodistLactic acid level, SEPSIS - Now and repeat 2x every 3 hours 2019-03-23 12:08:36* Test Item Value Reference Range Interpretation Comments Lactic acid (test code = 77105-5) 2.1 mmol/L 0.5-2.2 Artie MethodistPartial thromboplastin time, vzncavtqe5412-48-96 12:01:16* Test Item Value Reference Range Interpretation Comments PTT (test code = 41451-3) 33.6 23.0- 36.0 sec PTT therapeutic range for unfractionated heparin is61.0-112.0 seconds which corresponds to Anti-Xa0.3-0.7 U/ml. Artie MethodistProthrombin time with VMQ7389-71-11 12:00:31* Test Item Value Reference Range Interpretation Comments Prothrombin time (test code = 5902-2) 14.1 11.5- 14.5 sec INR (test code = 34624-7) 1.1 Th e International Normalized Ratio (INR) is a therapeutic monitoring tool for patients who are stable on oral anticoagulant therapy. An INR of 2.0-3.0 is suggested for deep vein thrombosis/pulmonary embolism. [facility] MethodistCBC with platelet and lheqnxiudeiq9512-81-82 11:47:31* Test Item Value Reference Range Interpretation Comments WBC (test code = 94793-8) 6.17 4.50- 11.00 k/uL RBC (test code = 89379-3) 4.42 m/uL 4.4-6 HGB (test code = 718-7) 12.6 g/dL 14-18 L HCT (test code = 4544-3) 41.8 % 41-51 MCV (test code = 787-2) 94.6 fL 82-100 MCH (test code = 785-6) 28.5 pg 27-34 MCHC (test code = 786-4) 30.1 g/dL 31-37 L RDW - SD (test code = 41332-5) 44.6 fL 37-55 MPV (test code = 14497-9) 10.7 fL 8.8-13.2 Platelet count (test code = 31626-0) 225 150- 400 k/uL Nucleated RBC (test code = 54765-1) 0.00 /100 WBC Neutrophils (test code = 16181-1) 59.5 % 39-69 Lymphocytes (test code = 30714-9) 25.9 % 25-45 Monocytes (test code = 25765-8) 8.9 % 0-10 Eosinophils (test code = 91208-3) 4.7 % 0-5 Basophils (test code = 19552-3) 0.5 % 0-1 Immature granulocytes (test code = 02562-3) 0.5 % 0-1 "Immature granulocytes" (promyelocytes, myelocytes, metamyelocytes) Lab Interpretation (test code = 88344-2) Abnormal [facility] 2 [id number] 17:43:00 [address] [address] Patient Name: ABBY ZUNIGA MR #: [id number] : 1955 Age/Sex: 63/M Req #: [id number] Adm Physician: Ordered by: UMU GUEVARA MD Report #: [id number] Location: [facility] Room/Bed: Procedure: [id number] DX /CHEST 2 VIEWS Exam Date: Exam Time: REPORT STATUS: Signed EXAMINATION: CHEST 2 V IEWS INDICATION: Obstructive sleep apnea COMPARISON: Chest radiogr aph of 05/09/2017 FINDINGS: LINES/TUBES:None LUNGS:The lungs are moderately inflated. No focal consolidation or pulmonary edema. PLEUR A:No pleural effusion or pneumothorax. MEDIASTINUM:Cardiomediastinal silhou ette is stably enlarged. BONES/SOFT TISSUES:No acute osseous injury. A BDOMEN:No free air under the diaphragm. IMPRESSION: No focal pneumoni a or pulmonary edema. Stable cardiomegaly. Signed by: Emily Parker MD o n 01/02/2019 5:44 PM Dictated By: EMILY PARKER MD 43 Transcribed By: MARIO on 01/02/191743 COPY TO: UMU GUEVARA MD ABDOMEN-1VIEW (KUB)2018-08-06 08:41:00 [address] [address] Patient Name: ABBY ZUNIGA MR #: [id number] : 1955 Age/Sex: 63/M Req #: [id number] Adm Physician: Ordered by: ELIZABETH PARDO MD Report #: [id number] Location: DX Room/Bed: Procedure: [id number] D X/ABDOMEN-1VIEW (KUB) Exam Date: 08/06/18 Exam Time: 0730 REPORT STATUS: Signed Abdo men, one view dated 08/06/2018. History: Anemia. Findings: Study perfor med as a b operator film prior to a barium enema. Patient was unable to tolerate th e enema tip. Procedure canceled at the patient's request. The intestinal g as pattern is nonobstructive. There no masses or abnormal calcifications. The osseous structures reveal degenerative changes at L1 and L2 with a marginal os teophyte. IMPRESSION: No acute abdominal abnormality. Signed by: Dr. Farhat Anton DO on 08/06/2018 9:15 AM Dictated By: FARHAT ANTON DO 4 Transcribed By: ROS LOCKE on 08/06/18914 COPY TO: ELIZABETH PARDO MD CHEST 2 VIEWS [address] [address] Patient Name: ABBY ZUNIGA MR #: [id number] : 1955 Age/Sex: 62/M Req #: [id number] Adm Physician: Ordered by: UMU GUEVARA MD Report #: [id number] Location: [facility]/B ed: Procedure: [id number] DX/CHEST 2 VIEWS Exam Date: 05/09/17 Exam Time: 1210 REPORT STATUS: Signed PROCEDURE: Frontal and lateral views of the chest. COMPARISON: Chest 2 views 10/30/2013. INDICATIONS: MID BACK PAIN FINDINGS: Mariana es/tubes: None. Lungs: The lungs are well inflated and clear. There is n o evidence of pneumonia or pulmonary edema. Pleura: There is no pleura l effusion or pneumothorax. Heart and mediastinum: The heart and the medi astinum are normal. Bones: No acute bony abnormality. IMPRESSION: No acute radiographic abnormality. Dictated by: Paula Byers M.D. on 05/09/2017 at 13:03 Electronically approved by: Paula Byers M.D. on at 13:03 Dictated By: PAULA BYERS MD Electronically Sign ed By: PAULA BYERS MD on 05/09/17 1303 Transcribed By: REYNA on 05/09/17 1303 COPY TO: UMU GUEVARA MD
--- OUTSIDE RECORDS SUMMARY | 2019-11-18 11:03 | XMS REPORT | Summary of Care ---
Author Author [facility] Organization [facility] Address Unknown Phone Unavailable Care Team Providers Care Surgical Supervisor Name Role Phone Cristopher Duron MD PCP Reason for Visit * Reason Comments Cardiology Follow-up Encounter Details Care Team Description Date Type Department Sonya Dillon PA-C [address] [place] [address] Cardiology Follow-up 04/30/2019 Office Visit [facility] [address], [address] [place] [address] Allergies No Known Allergiesdocumented as of this encounter (statuses as of 04/30/2019) Medications End Date Status Medication Sig Dispensed Refills Start Date Active Saxagliptin-Metformin Take 2 Tabs 0 (KOMBIGLYZE XR) 2.5-1000 by mouth. MG TB24 Active glimepiride (AMARYL) 4 MG Take 8 mg by 0 tablet mouth every morning. Active metformin (GLUCOPHAGE) Take 1,000 mg 0 1000 MG tablet by mouth 2 times daily (with meals). Active pioglitazone (ACTOS) 30 Take 30 mg by 0 MG tablet mouth daily. Active Ertugliflozin-SITagliptin Take by 0 (STEGLUJAN) 5-100 MG TABS mouth. Active [place]-3 Krill Oil 500 MG Take by 0 CAPS mouth. Active TURMERIC CURCUMIN OR Take by 0 mouth. Active amlodipine (NORVASC) 10 Take 1 Tab by 30 Tab 3 03/26/201 MG tabletIndications: mouth daily. 9 Essential hypertension, Congestive heart failure, unspecified HF chronicity, unspecified heart failure type (HCCode), Hyperkalemia, Atrial fibrillation, unspecified type (HCCode), Chest pain, unspecified type, Coronary artery disease involving moapa heart with angina pectoris, unspecified vessel or lesion type (HCCode) Active aspirin EC 81 MG Take 1 Tab by 30 Tab 3 01 tabletIndications: mouth daily. 9 Essential hypertension, Congestive heart failure, unspecified HF chronicity, unspecified heart failure type (HCCode), Hyperkalemia, Atrial fibrillation, unspecified type (HCCode), Chest pain, unspecified type, Coronary artery disease involving moapa heart with angina pectoris, unspecified vessel or lesion type (HCCode) Active atorvastatin (LIPITOR) 40 Take 1 Tab by 30 Tab 3 MG tabletIndications: mouth daily. 9 Essential hypertension, Congestive heart failure, unspecified HF chronicity, unspecified heart failure type (HCCode), Hyperkalemia, Atrial fibrillation, unspecified type (HCCode), Chest pain, unspecified type, Coronary artery disease involving moapa heart with angina pectoris, unspecified vessel or lesion type (HCCode) Active furosemide (LASIX) 40 MG Take one 30 Tab 3 1 tabletIndications: table by 9 Congestive heart failure, mouth daily unspecified HF in the chronicity, unspecified morning. heart failure type (HCCode), Hyperkalemia, Essential hypertension, Atrial fibrillation, unspecified type (HCCode), Chest pain, unspecified type, Coronary artery disease involving moapa heart with angina pectoris, unspecified vessel or lesion type (HCCode) Additional information Patient not taking. Reason: Other / Enter Comment, Reported on 04/30/2019 8:33 AM Active metoprolol (LOPRESSOR) 50 Take one 60 Tab 3 MG tabletIndications: tablet two 9 Essential hypertension, times daily, Congestive heart failure, one in the unspecified HF morning and chronicity, unspecified one in the heart failure type evening. (HCCode), Hyperkalemia, Atrial fibrillation, unspecified type (HCCode), Chest pain, unspecified type, Coronary artery disease involving moapa heart with angina pectoris, unspecified vessel or lesion type (HCCode) Active Apixaban 5 MG Take one 60 Tab 3 TABSIndications: Atrial table two 9 fibrillation, unspecified times daily, type (HCCode), Essential one in the hypertension, Congestive morning and heart failure, one in the unspecified HF evening. 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 Needs diuresis, unsure if he is taki ng lasix or not. 2. Re-check labs this week and re-send L ast Assessment & Plan: HFmrEF Needs diuresis Stressed importance of compliance with CPAP Needs rhythm control for a-fib Start diuresis, once compliant with CPA P for 4 weeks will schedule GIAN cardioversion Check BNP SOB (shortness of breath) 01/08/2019 Leg swelling 01/08/2019 Atrial fibrillation, persistent 01/08/2019 Overview: Rate controlled atrial fibrillation on eliquis 5 mg BID and metoprolol 50 mg BID. Has been compliant with CPAP for the la st 4 weeks. PLAN: 1. Schedule GIAN/Cardioversion with Dr. Rowell, needs labs and EKG this week. Alcohol abuse 01/08/2019 Essential hypertension 05/30/2018 Overview: At goal Lisinopril was d/c'ed due to hyperkalem ia amlodipine 10 mg PO daily, metoprolol t artrate 50 mg PO BID and HCTZ 50 mg PO daily Plan: 1.continue current regimen, stop hztc a nd re-start lasix at 40 mg daily. CAD (coronary artery disease) 10/26/2016 Overview: Had NSTEMI in 2017 s/p PCI to LCx + non obstructive disease Has DM and CKD Feeling short of breath on exertion wit h chest pain for the past 3 months. Is on ASA, metoprolol tartrate and ator vastatin MPI showed a Small size, mild severity, reversible defect in the apical segment only. Rest of the segments show normal perfusion at rest and with stress. Plan: Reviewed results with Dr. Rowell 1. Continue optimal medical management. documented as of this encounter (statuses as of 04/30/2019) Social History Date Tobacco Use Types Packs/Day Years Used Never Smoker Smokeless Tobacco: Never Used Drinks/Week oz/Week Comments Alcohol Use Yes Alcohol Habits Answer Date Recorded How often do you have a drink containing alcohol? 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 Blood Pressure 91 04/30/2019 8:31 AM OIL REFINER Pulse - - Temperature - - Respiratory Rate 99% 04/30/2019 8:31 AM OIL REFINER Oxygen Saturation - - Inhaled Oxygen Concentration 103.4 kg (228 lb) 04/30/2019 8:31 AM OIL REFINER Weight 170.2 cm (5' 7") 04/30/2019 8:31 AM OIL REFINER Height 35.71 04/30/2019 8:31 AM OIL REFINER Body Mass Index documented in this encounter Progress Notes * Sonya Dillon PA-C - 04/30/2019 9:00 AM OIL REFINER [facility] Cardiology clinic visit CHIEF COMPLAINT: Cardiology follow-up HISTORY OF PRESENT ILLNESS: 63M w/ HFmrEF (50%), a-fib on xarelto, DM2/HTN/HLD, CAD w/ NSTEMI and PCI to LCx , CATHLEEN not compliant with CPAP and non-obstructive LAD disease at [facility] in Today he feels well overall, without chest pain, shortness of breath, orhtopnea or PND. He is able to walk on a flat surface without limitations. He is able to do his job in [employer] with occasional breaks. He claims to be compliant with all his medications including lasix but it is not in his medication bag. MPI was positive for a small, mild reversible defect in the apical segment only. The rest of the segments showed normal perfusion at rest and with stress. REVIEW OF SYSTEMS: Constitutional: Negative Eyes: Negative ENT: Negative Card/vasc: As above Respiratory: As above GI: Negative : Negative Integumentary: Negative Neuro: Negative Psych: Negative Endo: Negative Heme/lymph: Negative Immuno: Negative PAST MEDICAL HISTORY: As documented in the HPI section PAST SURGICAL HISTORY: Unremarkable unless specified in the HPI section FAMILY HISTORY: Unremarkable unless specified in the HPI section CURRENT MEDICATIONS: Current Outpatient Medications: amlodipine (NORVASC) 10 MG tablet, Take 1 Tab by mouth daily., Disp: 30 Tab , Rfl: 3 Apixaban 5 MG TABS, Take one table two times daily, one in the morning and one in the evening., Disp: 60 Tab, Rfl: 3 aspirin EC 81 MG tablet, Take 1 Tab by mouth daily., Disp: 30 Tab, Rfl: 3 atorvastatin (LIPITOR) 40 MG tablet, Take 1 Tab by mouth daily., Disp: 30 T ab, Rfl: 3 Ertugliflozin-SITagliptin (STEGLUJAN) 5-100 MG TABS, Take by mouth., Disp: , Rfl: furosemide (LASIX) 40 MG tablet, Take one table by mouth daily in the [facility]. (Patient not taking: Reported on 04/30/2019), Disp: 30 Tab, Rfl: 3 glimepiride (AMARYL) 4 MG tablet, Take 8 mg by mouth every morning., Disp: , Rfl: metformin (GLUCOPHAGE) 1000 MG tablet, Take 1,000 mg by mouth 2 times daily (with meals)., Disp: , Rfl: metoprolol (LOPRESSOR) 50 MG tablet, Take one tablet two times daily, one i n the morning and one in the evening., Disp: 60 Tab, Rfl: 3 [place]-3 Krill Oil 500 MG CAPS, Take by mouth., Disp: , Rfl: pioglitazone (ACTOS) 30 MG tablet, Take 30 mg by mouth daily., Disp: , Rfl: Saxagliptin-Metformin (KOMBIGLYZE XR) 2.5-1000 MG TB24, Take 2 Tabs by mout h., Disp: , Rfl: TURMERIC CURCUMIN OR, Take by mouth., Disp: , Rfl: ALLERGIES: No Known Allergies SOCIAL HISTORY: Social History Socioeconomic History Marital status: Spouse name: Not on file Number of children: Not on file Years of education: Not on file Highest education level: Not on file Occupational History 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: [employer] Social Needs Financial resource strain: Not on file Food insecurity: Worry: Not on file Inability: Not on file Transportation needs: Medical: Not on file Non-medical: Not on file Tobacco Use Smoking status: Never Smoker Smokeless tobacco: Never Used Substance and Sexual Activity Alcohol use: Yes Drinks per session: 5 or 6 Drug use: No Sexual activity: Not on file Lifestyle Physical activity: Days per week: Not on file Minutes per session: Not on file Stress: Not on file Relationships Social connections: Talks on phone: Not on file Gets together: Not on file Attends taoist service: Not on file Active member of club or organization: Not on file Attends meetings of clubs or organizations: Not on file Relationship status: Not on file Intimate partner violence: Fear of current or ex partner: Not on file Emotionally abused: Not on file Physically abused: Not on file Forced sexual activity: Not on file Other Topics Concerns: Not on file Social History Narrative Not on file PHYSICAL EXAMINATION: Vitals: 04/30/19 0831 BP: 134/88 Pulse: 91 SpO2: 99% Weight: 228 lb (103.4 kg) Height: 5' 7" (1.702 m) Eyes: EOMI ENT: MMM, oropharynx clear Cardiovascular: irregular, normal S1, S2. No murmurs. No peripheral edema. Perip heral pulses palpable Respiratory: clear to auscultation bilaterally. No wheezes, crackles, or rhonchi GI:+BS, soft, nondistended, nontender to palpation : not performed MSK: 3+ DIANNE to knees Skin: no rash Neuro: A+O x 3, no focal deficit appreciated Psych: appropriate affect Heme/lymph/immuno: no lymphadenopathy LABORATORY DATA / DIAGNOSTIC STUDIES: ECG: a-fib Echocardiogram: Echo 01/17/19 1. Left ventricular chamber size (by vol index) is normal with no evidence of LV hypertrophy. LVEF by quantitative assessment is lower limits of normal (50-55%). Degree of diastolic dysfunction (LAP assessment) is inconclusive due to atrial arrhythmia. 2. RV chamber size is mildly enlarged with normal systolic function. 3. LA size is mildly enlarged. RA cavity size is moderately enlarged. 4. Proximal ascending aorta size is mildly dilated. 3.9 cm 5. No significant valvular abnormality. 6. Estimated Peak systolic PA pressure is 40-45 mm Hg. In comparison with the prior exam on 05/2018 the following changes are noted: Patient is now in atrial fibrillation and EF is 50-54%. PA pressures 40-45 mmHg with mild RV dilation and moderate RA dilation. 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 Co-dominant system. Left main normal, LAD with 40-50% lesions proximally, LCx with 90% lesion in the mid segment and 70% lesion distally. Intervention was performed of the mid-LCx lesion starting with pre-stent dilation with the [employer] NC Stormer 2.5 x 11 mm balloon with inflation up to 18 mmHg and inflation time up to 30 sec. A 2.5 x 18 mm Resolute integrity stent was then deployed successfully. This was followed by post-stent dilation with [place] muzu tv Emerge 3.0 x 12 mm and 3.5 x 12 mm balloons with inflation up to 20 mitch and inflation time up to 15 sec. At the end of the procedure, flow was improved from RADHA 2 to RADHA 3 flow. Lexiscan MPI IMPRESSION: 1. Study performed per Hybrid protocol. Patient exercised on treadmill per the [facility] Protocol, completing a total of 04 minutes and 00 seconds. Max heart rat e was 187 bpm ( 118 % of age predicted max heart rate). At 2 minutes into exerci se, pharmacologic stress was performed by IV injection of Regadenoson ( Lexiscan ) 0.4 mg over 10 seconds. Patient continued to exercise after injection of the L exiscan. 2. Small size, mild severity, reversible defect in the apical segment only. Rest of the segments show normal perfusion at rest and with stress. 3. The post stress left ventricular ejection fraction and segmental wall motion are not reliable due to presence of atrial fibrillation with rapid ventricular r esponse. Interpreting Physician: Debra Cantu MD Endo Physician. Alondra Lala M.D Number [phone] [id number] [facility] [id number] [facility] [id number]. 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 Needs diuresis, unsure if he is taking lasix or not. 2. Re-check labs this week and re-send Atrial Fibrillation, Persistent Rate controlled atrial fibrillation on eliquis 5 mg BID and metoprolol 50 mg BI D. Has been compliant with CPAP for the last 4 weeks. PLAN: 1. Schedule GIAN/Cardioversion with Dr. Rowell, needs labs and EKG this week. Cad (Coronary Artery Disease) Had NSTEMI in 2017 s/p PCI to LCx + nonobstructive disease Has DM and CKD Feeling short of breath on exertion with chest pain for the past 3 months. Is on ASA, metoprolol tartrate and atorvastatin MPI showed a Small size, mild severity, reversible defect in the apical segment only. Rest of the segments show normal perfusion at rest and with stress. Plan: Reviewed results with Dr. Rowell 1. Continue optimal medical management. The case was discussed with Dr. Rowell. Sonya Dillon PA-C [facility] Section of Cardiology Office # [phone] documented in this encounter Plan of Treatment Order Schedule Name Type Priority Associated Diag noses Ordered: 04/30/2019 COMPREHENSIVE METABOLIC Lab Routine Essent ial hypertension PANEL Congestive heart failure, unspecified HF chronicity, unspecified heart failure type (HCCode) Ordered: 04/30/2019 LIPID PANEL Lab Routine Essential hyper tension Congestive heart failure, unspecified HF chronicity, unspecified heart failure type (HCCode) Ordered: 04/30/2019 ELECTROCARDIOGRAM ECG Routine Essential hy pertension COMPLETE Congestive heart failure, unspecified HF chronicity, unspecified heart failure type (HCCode) Health Maintenance Due Date Last Done Comments COLON CANCER SCREENIN1957 COLONOSCOPY TETANUS SHOT (ADULT) 1972 BMI FOLLOW UP PLAN 1975 HEPATITIS C SCREENING 1975 HIV SCREENING 1975 FLU VACCINE > 6 MONTHS 11/08/2018 documented as of this encounter Results Not on filedocumented in this encounter Visit Diagnoses Diagnosis Essential hypertension - Primary Unspecified essential hypertension Congestive heart failure, unspecified H F chronicity, unspecified heart failure type (HCCode) documented in this encounter Insurance Type Payer Benefit Subscriber ID Effective Phone Address Plan / Dates Group [facility] xxxxxxxxxx 2018-P [address] [facility] [place] [id number] [place] [address] documented as of this encounter
--- OUTSIDE RECORDS SUMMARY | 2019-11-18 11:03 | XMS REPORT | Clinical Summary ---
Author Author [facility] Organization [facility] Address Unknown Phone Unavailable Care Team Providers Care Grad Intern Name Role Phone PCP Unavailable Allergies Not on File Medications Not on file Active Problems Not on file Encounters Care Team Description Date Type Specialty PlanLan Bean MD Elevated PSA (Primary Dx) 05/10/2019 Outside Orders Central Scheduling after 11/17/2018 Social History Date Tobacco Use Types Packs/Day Years Used Never Assessed Sex Assigned at Date Recorded Not on file Industry Job Start Date Occupation Not on file Not on file Not on file Travel End Travel History Travel Start No recent travel history available. Last Filed Vital Signs Not on file Plan of Treatment Not on file Results Not on fileafter 11/17/2018 Insurance Payer Benefit Subscriber ID Type Phone Address Plan / Group [employer] xxxxxxxxxx [employer] EX[employer]ANGE [id number]
--- OUTSIDE RECORDS SUMMARY | 2019-11-18 11:03 | XMS REPORT | Clinical Summary ---
Author Author [facility] Address Unknown Phone Unavailable Care Team Providers Care Shared Services Representative Name Role Phone Asked, No Pcp PCP Unavailable Allergies No Known Allergies Medications End Date Status Medication Sig Dispensed Refills Start Date Active glimepiride (AMARYL) 4 MG Take 8 mg by 1 tablet mouth daily before breakfast. Active metFORMIN (GLUCOPHAGE) Take 1,000 mg 1 01 1,000 mg tablet by mouth 2 7 (two) times a day with meals. Active metoprolol tartrate Take 50 mg by 1 (LOPRESSOR) 50 mg tablet mouth 2 (two) 7 times a day with meals. with food Active TURMERIC-HERBAL COMPLEX Take 1 0 NO.278 ORAL capsule by mouth every morning. Active omega-3 fatty acids 500 Take 1 0 mg capsule capsule by mouth every morning. Active aspirin (ECOTRIN) 81 MG Take 81 mg by 0 enteric coated tablet mouth every morning. Active apixaban (ELIQUIS) 5 mg Take 5 mg by 0 tablet mouth 2 (two) times a day. Active atorvastatin (LIPITOR) 40 Take 40 mg by 0 MG tablet mouth every morning. Active ertugliflozin-sitagliptin Take 1 tablet 0 (STEGLUJAN) 5-100 mg by mouth tablet every morning. Active hydroCHLOROthiazide Take 25 mg by 0 (HYDRODIURIL) 25 MG mouth every tablet morning. 03/23/2019 Discontinued (Med List Clean up) LANTUS SOLOSTAR 100 Inject 20 3 unit/mL injection (pen) Units under 7 the skin daily. 03/24/2019 Discontinued (Stop Taking at Discharge) lisinopril Take 5 mg by 0 (PRINIVIL,ZESTRIL) 5 mg mouth every 7 tablet morning. 03/23/2019 Discontinued (Med List Clean up) amLODIPine (NORVASC) 10 Take 1 tablet 0 06/10/ 201 mg tablet by mouth 7 daily. Active Problems Problem Noted Date Hyperkalemia 03/23/2019 Non-ST elevated myocardial infarction (non-STEMI) Encounters Care Team Description Date Type Specialty Penny Jones-MD Floyd Salinas Maria Guillermina, MD Hyperkalemia (Primary Dx); CHELLE (acute kidney injury) (HCC) 03/23/2019 Emergency General Internal Me dicine - 03/24/2019 after 11/17/2018 Family History Medical History Relation Name Comments Diabetes Mother Relation Name Status Comments Mother Social History Date Tobacco Use Types Packs/Day Years Used Never Smoker Smokeless Tobacco: Never Used Drinks/Week oz/Week Comments Alcohol Use occasional Yes Sex Assigned at Date Recorded Not on file Industry Job Start Date Occupation Not on file Not on file Not on file Travel End Travel History Travel Start No recent travel history available. Last Filed Vital Signs Reading Time Taken Comments Vital Sign 118/83 03/24/2019 8:22 AM CONVEYOR CONSOLE OPERATOR Blood Pressure 80 03/24/2019 8:22 AM CONVEYOR CONSOLE OPERATOR Pulse 36.9 C (98.5 F) 03/24/2019 8:22 AM CONVEYOR CONSOLE OPERATOR Temperature 18 03/24/2019 8:22 AM CONVEYOR CONSOLE OPERATOR Respiratory Rate 98% 03/24/2019 8:22 AM CONVEYOR CONSOLE OPERATOR Oxygen Saturation - - Inhaled Oxygen Concentration 109 kg (241 lb) 03/23/2019 5:07 PM CONVEYOR CONSOLE OPERATOR Weight 170.2 cm (5' 7") 03/23/2019 5:07 PM CONVEYOR CONSOLE OPERATOR Height 37.75 03/23/2019 5:07 PM CONVEYOR CONSOLE OPERATOR Body Mass Index Plan of Treatment Health Maintenance Due Date Last Done Comments COLONOSCOPY SCREENING 2007 SHINGLES VACCINES (#1) 2007 INFLUENZA VACCINE 11/09/2019 Implants Device Identifier Shelf Expiration Date Model / Serial / L ot Implanted Type Area Manufactur er 06/23/2018 [id number] / / [id number] Stent Cor Resolute Integrity Coronary N/A: N/A M EDTRONIC Ztrlims-Eltng Otw 2.5x18mm - Stents [facility] - [id number] VASCULAR Implanted: Qty: 1 on 09/19/2016 by Jay Osei MD at [facility] Procedures Comments Procedure Name Priority Date/Time Associated Diag nosis POC GLUCOSE Routine 03/24/2019 8:23 AM CONVEYOR CONSOLE OPERATOR ESTIMATED GFR Routine 03/24/2019 5:20 AM CONVEYOR CONSOLE OPERATOR CBC HEMOGRAM Routine 03/24/2019 5:20 AM CONVEYOR CONSOLE OPERATOR HEMOGLOBIN A1C Routine 03/24/2019 5:20 AM CONVEYOR CONSOLE OPERATOR BASIC METABOLIC PANEL Routine 03/24/2019 5:20 AM CONVEYOR CONSOLE OPERATOR GRAM STAIN Routine 03/23/2019 10:52 PM CONVEYOR CONSOLE OPERATOR URINE CULTURE Routine 03/23/2019 10:52 PM CONVEYOR CONSOLE OPERATOR POC GLUCOSE Routine 03/23/2019 10:30 PM CONVEYOR CONSOLE OPERATOR URINALYSIS SCREEN AND Routine 03/23/2019 MICROSCOPY, WITH REFLEX 9:00 PM CONVEYOR CONSOLE OPERATOR TO CULTURE ESTIMATED GFR Routine 03/23/2019 8:20 PM CONVEYOR CONSOLE OPERATOR BASIC METABOLIC PANEL Routine 03/23/2019 8:20 PM CONVEYOR CONSOLE OPERATOR POC GLUCOSE Routine 03/23/2019 4:36 PM CONVEYOR CONSOLE OPERATOR POC GLUCOSE Routine 03/23/2019 3:46 PM CONVEYOR CONSOLE OPERATOR ECG 12-LEAD STAT 03/23/2019 3:08 PM CONVEYOR CONSOLE OPERATOR POC GLUCOSE Routine 03/23/2019 1:36 PM CONVEYOR CONSOLE OPERATOR ESTIMATED GFR STAT 03/23/2019 11:30 AM CONVEYOR CONSOLE OPERATOR MAGNESIUM LEVEL STAT 03/23/2019 11:30 AM CONVEYOR CONSOLE OPERATOR LACTIC ACID LEVEL, SEPSIS STAT 03/23/2019 - NOW AND REPEAT 2X EVERY 11:30 AM CONVEYOR CONSOLE OPERATOR 3 HOURS COMPREHENSIVE METABOLIC STAT 03/23/2019 PANEL 11:30 AM CONVEYOR CONSOLE OPERATOR PARTIAL THROMBOPLASTIN STAT 03/23/2019 TIME (PTT) 11:30 AM CONVEYOR CONSOLE OPERATOR PROTHROMBIN TIME WITH INR STAT 03/23/2019 11:30 AM CONVEYOR CONSOLE OPERATOR HC COMPLETE BLD COUNT STAT 03/23/2019 W/AUTO DIFF 11:30 AM CONVEYOR CONSOLE OPERATOR ECG 12-LEAD Routine 03/23/2019 10:17 AM CONVEYOR CONSOLE OPERATOR after 11/17/2018 Results * POC glucose (03/24/2019 8:23 AM CONVEYOR CONSOLE OPERATOR) Only the most recent of 5 results within the time period is included. [facility] POC glucose 171 (H)Comment: [facility] Notified 65 - 99 mg/dL H [facility] Specimen Performing Organization Address City/[facility] Ph one Number [facility] DEPARTMENT OF [address] [place] [address] PATHOLOGY AND [facility] MEDICINE [address] * Estimated GFR (03/24/2019 5:20 AM CONVEYOR CONSOLE OPERATOR) Only the most recent of 3 results within the time period is included. [facility] Estimated GFR 38 (A) mL/min/1.73 m2 [facility] Comment: [facility] Interpretation G1 >=90 Normal or high G2 60-89 Mildly decreased G3a 45-59 Mildly to moderately decreased G3b 30-44 Moderately to severely decreased G4 15-29 Severely decreased G5 <15 Kidney failure The eGFR was calculated using the Chronic Kidney Disease Epidemiology Collaboration (CKD-EPI) equation. Interpretation is based on recommendations of the National Kidney Foundation-Kidney Disease Outcomes Quality Initiative (NKF-KDOQI) published in 2014. Specimen Plasma specimen Performing Organization Address [facility] Ph one Number [facility] DEPARTMENT OF [address] [place] [address] PATHOLOGY AND GENOMIC MEDICINE [address] * CBC hemogram (03/24/2019 5:20 AM CONVEYOR CONSOLE OPERATOR) [facility] WBC 5.97 4.50 - 11.00 k/uL [facility] RBC 4.18 (L) 4.40 - 6.00 m/uL [facility] HGB 11.7 (L) 14.0 - 18.0 g/dL [facility] HCT 38.5 (L) 41.0 - 51.0 % [facility] MCV 92.1 82.0 - 100.0 fL [facility] MCH 28.0 27.0 - 34.0 pg [facility] MCHC 30.4 (L) 31.0 - 37.0 g/dL [facility] RDW - SD 43.5 37.0 - 55.0 fL [facility] MPV 11.0 8.8 - 13.2 fL [facility] Platelet count 211 150 - 400 k/uL [facility] Nucleated RBC 0.00 /100 WBC [facility] Specimen Blood Performing Organization Address City/[facility] Ph one Number [facility] DEPARTMENT OF [address] [place] [address] PATHOLOGY AND GENOMIC MEDICINE [address] * Hemoglobin A1c (03/24/2019 5:20 AM CONVEYOR CONSOLE OPERATOR) Pathologist [facility] Hemoglobin A1C 8.0 (H) 4.0 - 5.6 % [facility] Comment: [facility] HbA1c cutoffs for diagnosing HOSPITAL diabetes: 4.0% - 5.6% = normal 5.7% - 6.4% = increased risk for diabetes (prediabetes)9 >=6.5% = diabetes9 Goals for glycemic control (ADA 2016) < 7.0% Target for non adults with diabetes. More or less stringent targets may be appropriate for individual patients. <7.5% Target for Children and adolescents with type 1 diabetes. Specimen Blood Performing Organization Address City/[facility] Ph one Number [facility] DEPARTMENT OF [address] [place] [address] PATHOLOGY AND GENOMIC MEDICINE [address] * Basic metabolic panel (03/24/2019 5:20 AM CONVEYOR CONSOLE OPERATOR) Only the most recent of 2 results within the time period is included. Sodium 139 135 - 148 mEq/L [facility] Potassium 4.6 3.5 - 5.0 mEq/L [facility] Chloride 104 98 - 112 mEq/L [facility] CO2 25 24 - 31 mEq/L [facility] Anion gap 10@ANIO 7 - 15 mEq/L [facility] BUN 32 (H) 8 - 23 mg/dL [facility] Creatinine 1.87 (H) 0.70 - 1.20 mg/dL [facility] Glucose 141 (H) 65 - 99 mg/dL [facility] Calcium 9.2 8.8 - 10.2 mg/dL [facility] Specimen Plasma specimen Performing Organization Address City/[facility] Ph one Number [facility] DEPARTMENT OF [address] [place] [address] PATHOLOGY AND GENOMIC MEDICINE [address] * Gram stain (03/23/2019 10:52 PM CONVEYOR CONSOLE OPERATOR) Gram stain No WBC's [facility] result Occasional Gram positive rods [facility] Comment: HOSPITAL Specimen Information Specimen Source: Urine Specimen Site: Clean catch Specimen Urine Performing Organization Address City/[facility] Ph one Number [facility] DEPARTMENT OF [address] [place] [address] PATHOLOGY AND GENOMIC MEDICINE [address] * Urine culture (03/23/2019 10:52 PM CONVEYOR CONSOLE OPERATOR) Urine culture Mixed israel 10-4 col/cc [facility] isolate Comment: [facility] Specimen Information HOSPITAL Specimen Source: Urine Specimen Site: Clean catch Specimen Urine Performing Organization Address City/[facility] Ph one Number [facility] DEPARTMENT OF [address] [place] [address] PATHOLOGY AND GENOMIC MEDICINE [address] * Urinalysis screen and microscopy, with reflex to culture (03/23/2019 9:00 PM CONVEYOR CONSOLE OPERATOR) Specimen site Clean catch [facility] Color, UA Straw [facility] Appearance, UA Clear [facility] Specific 1.015 1.001 - 1.035 [facility] gravity, [facility] pH, UA 5.0 5.0 - 8.5 [facility] Protein, UA Negative Negative [facility] Glucose, UA 3+ (A) Negative [facility] Ketones, UA Negative Negative [facility] Bilirubin, UA Negative Negative [facility] Blood, UA Negative Negative [facility] Nitrite, UA Negative Negative [facility] Urobilinogen, <2.0 <2.0 [facility] Leukocyte Negative Negative [facility] esterase, [facility] Epithelial <1 /HPF [facility] cells, [facility] WBC, UA 7 (H) 0 - 1 /HPF [facility] RBC, UA 1 0 - 5 /HPF [facility] Bacteria, UA Few None seen [facility] Yeast, UA None seen [facility] Yeast with None seen [facility] pseudohyphae, [facility] Specimen Urine Performing Organization Address City/State/[facility] Ph one Number [facility] DEPARTMENT OF [address] [place] [address] PATHOLOGY AND GENOMIC MEDICINE [address] * ECG 12 lead (03/23/2019 3:08 PM CONVEYOR CONSOLE OPERATOR) Only the most recent of 2 results within the time period is included. Ventricular 82 [facility] MUSE rate QRSD interval 82 [facility] QT interval 354 [facility] QTC interval 413 [facility] MUSE QRS axis 1 -39 [facility]USE T wave axis 26 [facility] EKG impression Atrial fibrillation-Left axis [facility] MUS E deviation-Anterior infarct (cited on or before 19-SEP-2016)-Abnormal ECG-In automated comparison with ECG of 23-MAR-2019 10:17,-No significant change was found- Specimen Narrative Performed At This result has an attachment that is n ot available. Performing Organization Address City/State/[facility] Ph one Number [facility] MUSE [address] [place] [address] * Lactic acid level, SEPSIS - Now and repeat 2x every 3 hours (03/23/2019 11:30 AM CONVEYOR CONSOLE OPERATOR) Pathologist [facility] Lactic acid 2.1 0.5 - 2.2 mmol/L [facility] Specimen Plasma specimen Performing Organization Address City/[facility] Ph one Number [facility] DEPARTMENT OF [address] [place] [address] PATHOLOGY AND GENOMIC MEDICINE [address] * Partial thromboplastin time, activated (03/23/2019 11:30 AM CONVEYOR CONSOLE OPERATOR) PTT 33.6 23.0 - 36.0 sec [facility] Comment: [facility] PTT therapeutic range for HOSPITAL unfractionated heparin is 61.0-112.0 seconds which corresponds to Anti-Xa 0.3-0.7 U/ml. Specimen Blood Performing Organization Address City/State/Zipcode Ph one Number [facility] DEPARTMENT OF [address] [place] [address] PATHOLOGY AND GENOMIC MEDICINE [address] * Prothrombin time with INR (03/23/2019 11:30 AM CONVEYOR CONSOLE OPERATOR) Prothrombin 14.1 11.5 - 14.5 sec [facility] INR 1.1 [facility] Comment: [facility] International Normalized HOSPITAL Ratio (INR) is a therapeutic monitoring tool for patients who are stable on oral anticoagulant therapy. An INR of 2.0-3.0 is suggested for deep vein thrombosis/pulmonary embolism. Specimen Blood Performing Organization Address City/[facility] Ph one Number [facility] DEPARTMENT OF [address] [place] [address] PATHOLOGY AND GENOMIC MEDICINE [address] * CBC with platelet and differential (03/23/2019 11:30 AM CONVEYOR CONSOLE OPERATOR) WBC 6.17 4.50 - 11.00 k/uL [facility] RBC 4.42 4.40 - 6.00 m/uL [facility] HGB 12.6 (L) 14.0 - 18.0 g/dL [facility] HCT 41.8 41.0 - 51.0 % [facility] MCV 94.6 82.0 - 100.0 fL [facility] MCH 28.5 27.0 - 34.0 pg [facility] MCHC 30.1 (L) 31.0 - 37.0 g/dL [facility] RDW - SD 44.6 37.0 - 55.0 fL [facility] MPV 10.7 8.8 - 13.2 fL [facility] Platelet count 225 150 - 400 k/uL [facility] Nucleated RBC 0.00 /100 WBC [facility] Neutrophils 59.5 39.0 - 69.0 % [facility] Lymphocytes 25.9 25.0 - 45.0 % [facility] Monocytes 8.9 0.0 - 10.0 % [facility] Eosinophils 4.7 0.0 - 5.0 % [facility] Basophils 0.5 0.0 - 1.0 % [facility] Immature 0.5Comment: "Immature 0.0 - 1.0 % [facility] granulocytes granulocytes" (promyelocytes, [facility] myelocytes, metamyelocytes) [facility] Specimen Blood Performing Organization Address City/[facility] Ph one Number [facility] DEPARTMENT OF [address] [place] [address] PATHOLOGY AND GENOMIC MEDICINE [address] * Magnesium level (03/23/2019 11:30 AM CONVEYOR CONSOLE OPERATOR) Magnesium 2.2 1.6 - 2.4 mg/dL [facility] Specimen Plasma specimen Performing Organization Address [facility] Ph one Number [facility] DEPARTMENT OF [address] [place] [address] PATHOLOGY AND GENOMIC MEDICINE [address] * Comprehensive metabolic panel (03/23/2019 11:30 AM CONVEYOR CONSOLE OPERATOR) Pathologist [facility] Sodium 137 135 - 148 mEq/L [facility] Potassium 6.5 (HH) 3.5 - 5.0 mEq/L [facility] Chloride 103 98 - 112 mEq/L [facility] CO2 19 (L) 24 - 31 mEq/L [facility] Anion gap 15@ANIO 7 - 15 mEq/L [facility] BUN 35 (H) 8 - 23 mg/dL [facility] Creatinine 2.02 (H) 0.70 - 1.20 mg/dL [facility] Glucose 195 (H) 65 - 99 mg/dL [facility] Calcium 9.5 8.8 - 10.2 mg/dL [facility] Protein 7.7 6.3 - 8.3 g/dL [facility] Comment: [facility] Fvbpxgq1118.6-7.0 g/dL HOSPITAL 1 vodq6320.4-7.6 g/dL 7 months-7qonv414.1-7.3 g/dL 1-2 tryed720.6-7.5 g/dL >3 lhyso090.0-8.0 g/dL 18-9018697.3-8.3 g/dL Albumin 3.9 3.5 - 5.0 g/dL [facility] A/G ratio 1.0 0.7 - 3.8 [facility] Alkaline 81 40 - 129 U/L [facility] phosphatase [facility] AST 15 10 - 50 U/L [facility] ALT 21 5 - 50 U/L [facility] Total bilirubin 0.3 0.0 - 1.2 mg/dL [facility] Specimen Plasma specimen Performing Organization Address [facility]/Zipcode Ph one Number [facility] DEPARTMENT OF [address] [place] [address] PATHOLOGY AND GENOMIC MEDICINE [facility] [address] [place] [address] HOSPITAL after 11/17/2018 Insurance Type Payer Benefit Subscriber ID Effective Phone Address Plan / Dates Group Exchange [employer] EXCHANGE [employer] xxxxxxxxxx [id number] [employer] E EXCHANGE [id number] Advance Directives For more information, please contact: [phone] 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
[2019-11-18 11:04] LABS: INR 0.95; PROTHROMBIN TIME 13.2 seconds (11.9-14.5)
[2019-11-18 11:14] LABS: ALBUMIN 3.5 g/dL (3.5-5.0); ALBUMIN/GLOBULIN RATIO 0.9 (0.8-2.0); ANION GAP 15.6 mmol/L (8-16); CALCIUM 9.3 mg/dL (8.4-10.2); CREATININE, SERUM 1.38 mg/dL (0.72-1.25); POTASSIUM 4.6 mmol/L (3.5-5.1)
--- NOTE | 2019-11-18 11:50 | Diagnostic Imaging Report ---
EXAMINATION: SHOULDER RIGHT COMPLETE INDICATION: Shoulder pain COMPARISON: None FINDINGS: No acute fracture or dislocation. Alignment is anatomic. Mild degenerative changes of the glenohumeral joint. The visualized portions of the right lung are clear. Soft tissues appear unremarkable. IMPRESSION: No acute osseous injury. Signed by: Venkata Arboleda MD on 11/18/2019 11:47 AM
[2019-11-18] MEDS ORDERED: SODIUM CHLORIDE 0.9% 1000ML 1,000 ML IV SCH (12:15)
== END 2019-11-18 13:25 | disposition home or self-care (01) ==
LOC: ER 11:00
DX: M25.511 Pain in right shoulder (principal); I10 Essential (primary) hypertension; E11.9 Type 2 diabetes mellitus without complications; E78.5 Hyperlipidemia, unspecified; I48.91 Unspecified atrial fibrillation; E78.00 Pure hypercholesterolemia, unspecified; I25.2 Old myocardial infarction
CPT/HCPCS: 36415; 71045; 80053; 83690; 83880; 84484; 85025; 85610; 93005; 99284

== ENCOUNTER 2020-10-12 11:33 | Inpatient (IN) | payer OTHER ==
[~2020-10-12] VITALS: Ht 172.7 cm; Wt 99.8 kg
[2020-10-12] MEDS ORDERED: SODIUM CHLORIDE 0.9% 1000ML 1,000 ML IV SCH ×2 (12:00→13:00)
[2020-10-12] MEDS ORDERED: ACETAMINOPHEN 325 MG TAB PO ONE (12:00)
[2020-10-12] MEDS ORDERED: KETOROLAC TROMETHAMINE 30 MG/ML VIAL IV STA (12:00)
[2020-10-12] MEDS ORDERED: KETOROLAC TROMETHAMINE 30 MG/ML VIAL ONE (12:10)
[2020-10-12] MEDS ORDERED: ACETAMINOPHEN 325 MG TAB ONE (12:10)
[2020-10-12 12:35] LABS: BASOPHILS % 0.4 % (0.0-1.0); EOSINOPHILS # (AUTO) 0.2 (0.0-0.4); EOSINOPHILS % 1.9 % (0.0-6.0); HEMATOCRIT 44.2 % (38.2-49.6); HEMOGLOBIN 13.8 g/dL (14.0-18.0); LYMPHOCYTES # (AUTO) 1.5 (1.0-3.2); MEAN CORPUSCULAR HEMOGLOBIN 29.5 pg (28-32); MEAN CORPUSCULAR HGB CONC 31.2 g/dL (31-35); MEAN CORPUSCULAR VOLUME 94.4 fL (81-99); MONOCYTES % 11.4 % (4.4-11.3); NEUTROPHILS # (AUTO) 5.7 (2.1-6.9); NEUTROPHILS % 67.8 % (38.7-80.0); PLATELET COUNT 270 x10e3/uL (140-360); RED BLOOD COUNT 4.68 x10e6/uL (4.3-5.7); RED CELL DISTRIBUTION WIDTH 13.9 % (11.7-14.4)
[2020-10-12 12:52] LABS: ALBUMIN 3.8 g/dL (3.5-5.0); ALBUMIN/GLOBULIN RATIO 0.8 (0.8-2.0); ANION GAP 20.2 mmol/L (8-16); CALCIUM 9.3 mg/dL (8.4-10.2); CREATININE, SERUM 1.53 mg/dL (0.72-1.25)
[2020-10-12 12:54] LABS: POTASSIUM 5.2 mmol/L (3.5-5.1)
[2020-10-12] MEDS: Vancomycin IV 1 GM in SODIUM CHLORIDE 0.9% 250ML 250 ML IV SCH (13:10)
[2020-10-12] MEDS ORDERED: IOPAMIDOL 370 MG/ML 200 ML INFUS..BTL INJ ONE (15:42)
[2020-10-12] MEDS ORDERED: SODIUM CHLORIDE 0.9% 50ML 50 ML ONE (15:42)
[2020-10-12 16:46] LABS: CLARITY,URINE SL CLOUDY (CLEAR); COLOR,URINE STRAW (YELLOW); KETONES,URINE NEGATIVE (NEGATIVE); LEUKOCYTE ESTERASE ,URINE NEGATIVE (NEGATIVE); NITRITE,URINE NEGATIVE (NEGATIVE); PROTEIN,URINE DIPSTICK 1+ (NEGATIVE); URINE UROBILINOGEN 1 mg/dL (0.2 - 1)
[2020-10-12 17:04] LABS: BACTERIA,URINE MODERATE /HPF
[2020-10-12] MEDS ORDERED: ONDANSETRON HCL INJ 2MG/ML 2ML 2 MG/ML VIAL IV PRN ×2 (18:15→19:00)
[2020-10-12] MEDS ORDERED: MORPHINE SULFATE INJ 4 MG/ML INJ 1ML IV PRN (18:15)
[2020-10-12] MEDS ORDERED: DEXTROSE 50% SYRINGE 50 ML IV PRN (19:00)
[2020-10-12] MEDS ORDERED: MORPHINE SULFATE INJ 2 MG/ML SYR IV PRN (19:00)
[2020-10-12 19:36] LABS: BASOPHILS % 0.3 % (0.0-1.0); EOSINOPHILS # (AUTO) 0.2 (0.0-0.4); EOSINOPHILS % 2.1 % (0.0-6.0); HEMATOCRIT 41.3 % (38.2-49.6); HEMOGLOBIN 12.8 g/dL (14.0-18.0); LYMPHOCYTES # (AUTO) 1.4 (1.0-3.2); LYMPHOCYTES % 19.9 % (18.0-39.1); MEAN CORPUSCULAR HEMOGLOBIN 29.6 pg (28-32); MEAN CORPUSCULAR VOLUME 95.4 fL (81-99); MONOCYTES # (AUTO) 0.8 (0.2-0.8); MONOCYTES % 11.6 % (4.4-11.3); NEUTROPHILS # (AUTO) 4.7 (2.1-6.9); NEUTROPHILS % 65.8 % (38.7-80.0); PLATELET COUNT 263 x10e3/uL (140-360); RED BLOOD COUNT 4.33 x10e6/uL (4.3-5.7); RED CELL DISTRIBUTION WIDTH 13.9 % (11.7-14.4)
[2020-10-12 19:46] LABS: INR 1.04; PROTHROMBIN TIME 14.2 seconds (11.9-14.5)
[2020-10-12 19:47] LABS: PARTIAL THROMBOPLASTIN TIME 32.8 seconds (23.8-35.5)
[2020-10-12 19:51] LABS: ANION GAP 16.2 mmol/L (8-16); CALCIUM 9.3 mg/dL (8.4-10.2); CREATININE, SERUM 1.49 mg/dL (0.72-1.25); POTASSIUM 5.2 mmol/L (3.5-5.1)
[2020-10-12] MEDS ORDERED: CALCIUM GLUCONATE 10% INJ 4.65 MEQ in SODIUM CHLORIDE 0.9% 50ML 50 ML IV ONE (20:00)
[2020-10-12 20:46] VITALS: BP 143/100
[2020-10-12] MEDS ORDERED: SIMVASTATIN 40 MG TAB PO SCH (21:00)
[2020-10-12 21:38] VITALS: BP 143/100
[2020-10-12] MEDS ORDERED: AMIODARONE HCL 150 MG/100 ML BAG IV ONE (22:30)
[2020-10-12] MEDS ORDERED: AMIODARONE 900MG 500 ML IV ONE (22:30)
[2020-10-12 22:40] VITALS: BP 134/97
[2020-10-13] VITALS (10 sets, daily range): BP systolic 107–146; BP diastolic 72–95
[2020-10-13 00:05] LABS: BASOPHILS % 0.3 % (0.0-1.0); EOSINOPHILS # (AUTO) 0.2 (0.0-0.4); HEMOGLOBIN 11.1 g/dL (14.0-18.0); MEAN CORPUSCULAR HEMOGLOBIN 29.4 pg (28-32); MEAN CORPUSCULAR HGB CONC 31.7 g/dL (31-35); MEAN CORPUSCULAR VOLUME 92.6 fL (81-99); MONOCYTES # (AUTO) 0.6 (0.2-0.8); MONOCYTES % 10.7 % (4.4-11.3); NEUTROPHILS # (AUTO) 4.2 (2.1-6.9); NEUTROPHILS % 69.7 % (38.7-80.0); PLATELET COUNT 238 x10e3/uL (140-360); RED BLOOD COUNT 3.78 x10e6/uL (4.3-5.7)
[2020-10-13] MEDS: SODIUM CHLORIDE 0.9% 1000ML 1,000 ML IV SCH ×2 (00:11→01:02)
[2020-10-13] MEDS: CEFEPIME 1 GM in SODIUM CHLORIDE 0.9% 50ML 50 ML IV SCH ×3 (00:11→21:13)
[2020-10-13 00:15] LABS: ALBUMIN/GLOBULIN RATIO 0.8 (0.8-2.0); ANION GAP 15.7 mmol/L (8-16); CALCIUM 8.5 mg/dL (8.4-10.2); CREATININE, SERUM 1.36 mg/dL (0.72-1.25); POTASSIUM 4.7 mmol/L (3.5-5.1)
[2020-10-13 00:25] LABS: MAGNESIUM 1.8 MG/DL (1.3-2.1); PHOSPHORUS 2.8 MG/DL (2.3-4.7)
[2020-10-13] MEDS ORDERED: METFORMIN HCL500 MG PO (00:30)
[2020-10-13] MEDS ORDERED: METOPROLOL TAR100 MG PO (00:30)
[2020-10-13] MEDS ORDERED: ELIQUIS5 MG PO (00:30)
[2020-10-13] MEDS ORDERED: ATORVASTATIN CA20 MG PO (00:30)
[2020-10-13] MEDS ORDERED: TYLENOL # 31 EA PO (00:30)
[2020-10-13] MEDS ORDERED: LASIX40 MG PO (00:30)
[2020-10-13] MEDS ORDERED: MELOXICAM7.5 MG PO (00:30)
[2020-10-13] MEDS ORDERED: LOSARTAN POTASS25 MG PO (00:30)
[2020-10-13] MEDS: Vancomycin IV 1 GM in SODIUM CHLORIDE 0.9% 250ML 250 ML IV SCH ×2 (01:02→12:34)
[2020-10-13] MEDS: MULTIVITAMINS- 12 INJECTION 10 ML, FOLIC ACID MDV 5 MG, THIAMINE HCL INJ 100 MG in SODI... IV SCH ×3 (03:32→23:34)
[2020-10-13] MEDS: MORPHINE SULFATE INJ 2 MG/ML SYR IV PRN ×2 (03:40→12:34)
[2020-10-13] MEDS: ACETAMINOPHEN 1000 MG/100 ML IV PRN ×3 (03:48→20:45)
[2020-10-13 04:55] LABS: BASOPHILS % 0.2 % (0.0-1.0); EOSINOPHILS # (AUTO) 0.2 (0.0-0.4); EOSINOPHILS % 2.7 % (0.0-6.0); HEMATOCRIT 31.3 % (38.2-49.6); HEMOGLOBIN 9.9 g/dL (14.0-18.0); LYMPHOCYTES % 15.9 % (18.0-39.1); MEAN CORPUSCULAR HEMOGLOBIN 29.6 pg (28-32); MEAN CORPUSCULAR HGB CONC 31.6 g/dL (31-35); MEAN CORPUSCULAR VOLUME 93.7 fL (81-99); MONOCYTES # (AUTO) 0.8 (0.2-0.8); MONOCYTES % 12.5 % (4.4-11.3); NEUTROPHILS # (AUTO) 4.1 (2.1-6.9); NEUTROPHILS % 68.2 % (38.7-80.0); PLATELET COUNT 224 x10e3/uL (140-360); RED BLOOD COUNT 3.34 x10e6/uL (4.3-5.7)
[2020-10-13 05:13] LABS: MAGNESIUM 1.7 MG/DL (1.3-2.1); PHOSPHORUS 2.1 MG/DL (2.3-4.7)
[2020-10-13 05:54] LABS: ALBUMIN 2.7 g/dL (3.5-5.0); ALBUMIN/GLOBULIN RATIO 0.8 (0.8-2.0); ANION GAP 13.7 mmol/L (8-16); CREATININE, SERUM 1.14 mg/dL (0.72-1.25); POTASSIUM 4.7 mmol/L (3.5-5.1)
[2020-10-13] MEDS ORDERED: ACETAMINOPHEN 1000 MG/100 ML IV SCH (06:00)
[2020-10-13] MEDS ORDERED: DEXTROSE 50% SYRINGE 50 ML IV PRN (06:15)
[2020-10-13] MEDS: INSULIN LISPRO 100 UNIT/1 ML 3ML VIAL SQ SCH ×6 (07:58→21:00)
[2020-10-13] MEDS: ASPIRIN 81 MG CHEW TAB PO SCH (08:05)
[2020-10-13] MEDS: PIOGLITAZONE HCL 15 MG TAB PO SCH (08:05)
[2020-10-13 08:21] LABS: CHOL/HDL RATIO 4.7 (3.9-4.7)
[2020-10-13 08:41] LABS: THYROID STIMULATING HORMONE 1.014 uIU/mL (0.350-4.940)
[2020-10-13] MEDS: METOPROLOL TARTRATE 50 MG TAB PO SCH ×2 (09:19→17:00)
[2020-10-13] MEDS: APIXABAN 5 MG TABLET PO SCH ×2 (09:19→16:59)
[2020-10-13] MEDS ORDERED: ATORVASTATIN 40 MG TAB PO SCH (21:00)
[2020-10-13] MEDS: INSULIN GLARGINE 100 UNITS/ML VIAL SQ SCH (21:00)
[2020-10-13] MEDS ORDERED: THIAMINE HCL INJ 100 MG/ML 2ML VIAL ONE (23:47)
[2020-10-13] MEDS ORDERED: SODIUM CHLORIDE 0.9% 1000ML 1,000 ML ONE (23:47)
[2020-10-14] VITALS (10 sets, daily range): BP systolic 122–157; BP diastolic 76–99
[2020-10-14] MEDS: MORPHINE SULFATE INJ 2 MG/ML SYR IV PRN ×2 (04:48→12:11)
[2020-10-14 05:43] LABS: BASOPHILS % 0.2 % (0.0-1.0); EOSINOPHILS # (AUTO) 0.1 (0.0-0.4); EOSINOPHILS % 0.8 % (0.0-6.0); HEMATOCRIT 30.7 % (38.2-49.6); HEMOGLOBIN 9.6 g/dL (14.0-18.0); LYMPHOCYTES % 15.1 % (18.0-39.1); MEAN CORPUSCULAR HEMOGLOBIN 29.6 pg (28-32); MEAN CORPUSCULAR HGB CONC 31.3 g/dL (31-35); MEAN CORPUSCULAR VOLUME 94.8 fL (81-99); MONOCYTES # (AUTO) 0.8 (0.2-0.8); MONOCYTES % 12.9 % (4.4-11.3); NEUTROPHILS # (AUTO) 4.5 (2.1-6.9); NEUTROPHILS % 70.7 % (38.7-80.0); PLATELET COUNT 217 x10e3/uL (140-360); RED BLOOD COUNT 3.24 x10e6/uL (4.3-5.7)
[2020-10-14 06:33] LABS: ALBUMIN 2.5 g/dL (3.5-5.0); ALBUMIN/GLOBULIN RATIO 0.7 (0.8-2.0); ANION GAP 12.5 mmol/L (8-16); CALCIUM 7.9 mg/dL (8.4-10.2); CREATININE, SERUM 1.25 mg/dL (0.72-1.25); POTASSIUM 4.5 mmol/L (3.5-5.1)
[2020-10-14] MEDS: INSULIN LISPRO 100 UNIT/1 ML 3ML VIAL SQ SCH ×4 (07:30→20:31)
[2020-10-14] MEDS: METOPROLOL TARTRATE 50 MG TAB PO SCH ×2 (08:40→16:35)
[2020-10-14] MEDS: PIOGLITAZONE HCL 15 MG TAB PO SCH (08:40)
[2020-10-14] MEDS: APIXABAN 5 MG TABLET PO SCH ×2 (08:40→16:40)
[2020-10-14] MEDS: ASPIRIN 81 MG CHEW TAB PO SCH (08:40)
[2020-10-14] MEDS: CEFEPIME 1 GM in SODIUM CHLORIDE 0.9% 50ML 50 ML IV SCH ×2 (08:41→21:37)
[2020-10-14] MEDS ORDERED: FLURBIPROFEN SODIUM OP PRN (10:00)
[2020-10-14] MEDS ORDERED: GADOBENATE DIMEGLUMINE 1 ML IV ONE (12:32)
[2020-10-14] MEDS: INSULIN GLARGINE 100 UNITS/ML VIAL SQ SCH (20:32)
[2020-10-14] MEDS: TAMSULOSIN HCL 0.4 MG CAP PO SCH (20:35)
[2020-10-14] MEDS: ACETAMINOPHEN 1000 MG/100 ML IV PRN (20:52)
[2020-10-14] MEDS: MULTIVITAMINS- 12 INJECTION 10 ML, FOLIC ACID MDV 5 MG, THIAMINE HCL INJ 100 MG in SODI... IV SCH (23:06)
[2020-10-15] VITALS (9 sets, daily range): BP systolic 115–158; BP diastolic 79–99
[2020-10-15] MEDS: MULTIVITAMINS- 12 INJECTION 10 ML, FOLIC ACID MDV 5 MG, THIAMINE HCL INJ 100 MG in SODI... IV SCH ×2 (02:34→16:04)
[2020-10-15] MEDS: MORPHINE SULFATE INJ 2 MG/ML SYR IV PRN (03:34)
[2020-10-15] MEDS: INSULIN LISPRO 100 UNIT/1 ML 3ML VIAL SQ SCH ×4 (07:30→21:18)
[2020-10-15 09:38] LABS: BASOPHILS % 0.2 % (0.0-1.0); EOSINOPHILS % 0.1 % (0.0-6.0); HEMATOCRIT 31.7 % (38.2-49.6); LYMPHOCYTES # (AUTO) 0.6 (1.0-3.2); LYMPHOCYTES % 7.2 % (18.0-39.1); MEAN CORPUSCULAR HEMOGLOBIN 29.6 pg (28-32); MEAN CORPUSCULAR HGB CONC 31.5 g/dL (31-35); MEAN CORPUSCULAR VOLUME 93.8 fL (81-99); MONOCYTES # (AUTO) 1.2 (0.2-0.8); MONOCYTES % 13.8 % (4.4-11.3); NEUTROPHILS # (AUTO) 6.8 (2.1-6.9); NEUTROPHILS % 78.4 % (38.7-80.0); PLATELET COUNT 199 x10e3/uL (140-360); RED BLOOD COUNT 3.38 x10e6/uL (4.3-5.7); RED CELL DISTRIBUTION WIDTH 13.9 % (11.7-14.4)
[2020-10-15] MEDS: ASPIRIN 81 MG CHEW TAB PO SCH (09:54)
[2020-10-15] MEDS: PIOGLITAZONE HCL 15 MG TAB PO SCH (09:54)
[2020-10-15] MEDS: APIXABAN 5 MG TABLET PO SCH ×2 (09:54→17:48)
[2020-10-15 09:55] LABS: ANION GAP 15.8 mmol/L (8-16); CALCIUM 8.5 mg/dL (8.4-10.2); CREATININE, SERUM 1.32 mg/dL (0.72-1.25); POTASSIUM 4.8 mmol/L (3.5-5.1)
[2020-10-15] MEDS: METOPROLOL TARTRATE 50 MG TAB PO SCH ×2 (09:55→17:48)
[2020-10-15] MEDS: CEFEPIME 1 GM in SODIUM CHLORIDE 0.9% 50ML 50 ML IV SCH ×2 (09:55→21:29)
[2020-10-15] MEDS ORDERED: HYDRALAZINE HCL 20 MG/ML VIAL IV PRN (10:30)
[2020-10-15] MEDS ORDERED: FUROSEMIDE INJ 10 MG/ML 2 ML VIAL IV ONE (11:00)
[2020-10-15] MEDS: FUROSEMIDE INJ 10 MG/ML 4 ML VIAL IV SCH ×2 (11:54→21:29)
[2020-10-15] MEDS: DIGOXIN INJ 0.25 MG/ML 2 ML AMP IV SCH ×2 (11:59→15:51)
[2020-10-15] MEDS ORDERED: METHYLPREDNISOLONE SOD SUCC 40 MG/ML VIAL 1ML IV ONE (14:20)
[2020-10-15] MEDS ORDERED: DIGOXIN INJ 0.25 MG/ML 2 ML AMP IV ONE (16:00)
[2020-10-15] MEDS ORDERED: INSULIN GLARGINE 100 UNITS/ML VIAL SQ SCH (21:00)
[2020-10-15] MEDS: TAMSULOSIN HCL 0.4 MG CAP PO SCH (21:14)
[2020-10-16] VITALS (7 sets, daily range): BP systolic 124–155; BP diastolic 80–96
[2020-10-16 05:48] LABS: BASOPHILS % 0.1 % (0.0-1.0); HEMATOCRIT 31.7 % (38.2-49.6); HEMOGLOBIN 10.2 g/dL (14.0-18.0); LYMPHOCYTES # (AUTO) 0.6 (1.0-3.2); LYMPHOCYTES % 6.4 % (18.0-39.1); MEAN CORPUSCULAR HEMOGLOBIN 29.4 pg (28-32); MEAN CORPUSCULAR HGB CONC 32.2 g/dL (31-35); MEAN CORPUSCULAR VOLUME 91.4 fL (81-99); MONOCYTES % 11.3 % (4.4-11.3); NEUTROPHILS % 81.7 % (38.7-80.0); PLATELET COUNT 230 x10e3/uL (140-360); RED BLOOD COUNT 3.47 x10e6/uL (4.3-5.7); RED CELL DISTRIBUTION WIDTH 13.6 % (11.7-14.4)
[2020-10-16] MEDS: MORPHINE SULFATE INJ 4 MG/ML INJ 1ML IV PRN ×2 (05:50→11:21)
[2020-10-16 06:25] LABS: ALBUMIN 2.3 g/dL (3.5-5.0); ALBUMIN/GLOBULIN RATIO 0.5 (0.8-2.0); ANION GAP 15.4 mmol/L (8-16); CALCIUM 8.9 mg/dL (8.4-10.2); CREATININE, SERUM 1.41 mg/dL (0.72-1.25); POTASSIUM 4.4 mmol/L (3.5-5.1)
[2020-10-16 07:00] LABS: MAGNESIUM 1.9 MG/DL (1.3-2.1); PHOSPHORUS 2.8 MG/DL (2.3-4.7)
[2020-10-16] MEDS: APIXABAN 5 MG TABLET PO SCH ×2 (08:14→16:37)
[2020-10-16] MEDS: THIAMINE HCL 100 MG TAB PO SCH (08:14)
[2020-10-16] MEDS: CEFEPIME 1 GM in SODIUM CHLORIDE 0.9% 50ML 50 ML IV SCH ×2 (08:14→21:30)
[2020-10-16] MEDS: METOPROLOL TARTRATE 50 MG TAB PO SCH ×2 (08:14→16:37)
[2020-10-16] MEDS: FUROSEMIDE INJ 10 MG/ML 4 ML VIAL IV SCH ×2 (08:14→21:30)
[2020-10-16] MEDS: SODIUM BICARBONATE 650 MG TAB PO SCH ×2 (08:14→16:38)
[2020-10-16] MEDS: ASPIRIN 81 MG CHEW TAB PO SCH (08:14)
[2020-10-16] MEDS: FOLIC ACID 1 MG TAB PO SCH (08:14)
[2020-10-16] MEDS: MULTIVITAMINS/MINERALS TAB PO SCH (08:14)
[2020-10-16] MEDS: INSULIN LISPRO 100 UNIT/1 ML 3ML VIAL SQ SCH ×4 (08:16→21:30)
[2020-10-16] MEDS ORDERED: SODIUM CHLORIDE 0.9% 250ML 250 ML ONE (20:07)
[2020-10-16] MEDS: INSULIN GLARGINE 100 UNITS/ML VIAL SQ SCH (21:30)
[2020-10-16] MEDS: TAMSULOSIN HCL 0.4 MG CAP PO SCH (21:30)
[2020-10-17] VITALS (7 sets, daily range): BP systolic 111–158; BP diastolic 70–111
[2020-10-17] MEDS: MORPHINE SULFATE INJ 4 MG/ML INJ 1ML IV PRN (03:50)
[2020-10-17] MEDS: INSULIN LISPRO 100 UNIT/1 ML 3ML VIAL SQ SCH ×4 (08:22→20:32)
[2020-10-17] MEDS: APIXABAN 5 MG TABLET PO SCH ×2 (09:51→18:44)
[2020-10-17] MEDS: ASPIRIN 81 MG CHEW TAB PO SCH (09:51)
[2020-10-17] MEDS: FOLIC ACID 1 MG TAB PO SCH (09:51)
[2020-10-17] MEDS: CEFEPIME 1 GM in SODIUM CHLORIDE 0.9% 50ML 50 ML IV SCH (09:51)
[2020-10-17] MEDS: METOPROLOL TARTRATE 50 MG TAB PO SCH ×2 (09:52→18:45)
[2020-10-17] MEDS: SODIUM BICARBONATE 650 MG TAB PO SCH ×2 (09:52→18:45)
[2020-10-17] MEDS: MULTIVITAMINS/MINERALS TAB PO SCH (09:52)
[2020-10-17] MEDS: THIAMINE HCL 100 MG TAB PO SCH (09:53)
[2020-10-17] MEDS: METHYLPREDNISOLONE SOD SUCC 40 MG/ML VIAL 1ML IV SCH ×2 (13:57→20:49)
[2020-10-17] MEDS: HYDROCODONE/APAP 10MG-325MG TAB PO PRN ×2 (14:01→20:50)
[2020-10-17] MEDS: LIDOCAINE 4% PATCH TP SCH (14:02)
[2020-10-17] MEDS ORDERED: HYDROCODONE/APAP 10MG-325MG TAB ONE (14:10)
[2020-10-17] MEDS ORDERED: HYDROMORPHONE 1MG/1ML INJ IV PRN (15:30)
[2020-10-17] MEDS: INSULIN GLARGINE 100 UNITS/ML VIAL SQ SCH (20:33)
[2020-10-17] MEDS: TAMSULOSIN HCL 0.4 MG CAP PO SCH (20:49)
[2020-10-17] MEDS: FUROSEMIDE INJ 10 MG/ML 4 ML VIAL IV SCH (20:49)
[2020-10-18] VITALS (7 sets, daily range): BP systolic 114–138; BP diastolic 82–98
[2020-10-18] MEDS: METHYLPREDNISOLONE SOD SUCC 40 MG/ML VIAL 1ML IV SCH ×3 (05:22→21:13)
[2020-10-18] MEDS: HYDROCODONE/APAP 10MG-325MG TAB PO PRN ×2 (05:23→20:31)
[2020-10-18 06:04] LABS: HEMATOCRIT 36.1 % (38.2-49.6); HEMOGLOBIN 11.8 g/dL (14.0-18.0); LYMPHOCYTES # (AUTO) 0.7 (1.0-3.2); LYMPHOCYTES % 9.2 % (18.0-39.1); MEAN CORPUSCULAR HEMOGLOBIN 29.9 pg (28-32); MEAN CORPUSCULAR HGB CONC 32.7 g/dL (31-35); MEAN CORPUSCULAR VOLUME 91.6 fL (81-99); MONOCYTES # (AUTO) 0.4 (0.2-0.8); MONOCYTES % 5.5 % (4.4-11.3); NEUTROPHILS # (AUTO) 6.6 (2.1-6.9); NEUTROPHILS % 84.8 % (38.7-80.0); PLATELET COUNT 285 x10e3/uL (140-360); RED BLOOD COUNT 3.94 x10e6/uL (4.3-5.7); RED CELL DISTRIBUTION WIDTH 13.8 % (11.7-14.4)
[2020-10-18 06:28] LABS: ALBUMIN 2.3 g/dL (3.5-5.0); ALBUMIN/GLOBULIN RATIO 0.5 (0.8-2.0); ANION GAP 16.9 mmol/L (8-16); CALCIUM 9.6 mg/dL (8.4-10.2); CREATININE, SERUM 1.5 mg/dL (0.72-1.25); POTASSIUM 4.9 mmol/L (3.5-5.1)
[2020-10-18 06:35] LABS: DIGOXIN 0.47 ng/mL (0.8-2.0)
[2020-10-18] MEDS ORDERED: SODIUM CHLORIDE 0.9% 500ML 500 ML IV ONE (08:30)
[2020-10-18] MEDS ORDERED: PREDNISONE 20 MG TAB PO SCH (09:00)
[2020-10-18] MEDS: INSULIN LISPRO 100 UNIT/1 ML 3ML VIAL SQ SCH ×5 (09:33→20:30)
[2020-10-18] MEDS: APIXABAN 5 MG TABLET PO SCH ×2 (10:36→15:57)
[2020-10-18] MEDS: FOLIC ACID 1 MG TAB PO SCH (10:36)
[2020-10-18] MEDS: ASPIRIN 81 MG CHEW TAB PO SCH (10:36)
[2020-10-18] MEDS: FUROSEMIDE INJ 10 MG/ML 4 ML VIAL IV SCH ×2 (10:36→20:26)
[2020-10-18] MEDS: METOPROLOL TARTRATE 50 MG TAB PO SCH ×2 (10:37→15:58)
[2020-10-18] MEDS: LIDOCAINE 4% PATCH TP SCH (10:38)
[2020-10-18] MEDS: SODIUM BICARBONATE 650 MG TAB PO SCH ×2 (10:38→15:58)
[2020-10-18] MEDS: MULTIVITAMINS/MINERALS TAB PO SCH (10:38)
[2020-10-18] MEDS: THIAMINE HCL 100 MG TAB PO SCH (10:38)
[2020-10-18] MEDS: TAMSULOSIN HCL 0.4 MG CAP PO SCH (20:26)
[2020-10-18] MEDS ORDERED: INSULIN GLARGINE 100 UNITS/ML VIAL SQ SCH (21:00)
[2020-10-19] VITALS (8 sets, daily range): BP systolic 112–149; BP diastolic 68–96
[2020-10-19] MEDS: METHYLPREDNISOLONE SOD SUCC 40 MG/ML VIAL 1ML IV SCH ×2 (05:04→20:55)
[2020-10-19] MEDS: INSULIN LISPRO 100 UNIT/1 ML 3ML VIAL SQ SCH ×7 (08:40→20:55)
[2020-10-19] MEDS: APIXABAN 5 MG TABLET PO SCH ×2 (08:43→16:01)
[2020-10-19] MEDS: ASPIRIN 81 MG CHEW TAB PO SCH (08:43)
[2020-10-19] MEDS: FOLIC ACID 1 MG TAB PO SCH (08:44)
[2020-10-19] MEDS: MULTIVITAMINS/MINERALS TAB PO SCH (08:44)
[2020-10-19] MEDS: METOPROLOL TARTRATE 50 MG TAB PO SCH ×2 (08:44→16:00)
[2020-10-19] MEDS: SODIUM BICARBONATE 650 MG TAB PO SCH (08:45)
[2020-10-19] MEDS: THIAMINE HCL 100 MG TAB PO SCH (08:45)
[2020-10-19] MEDS: LIDOCAINE 4% PATCH TP SCH (08:47)
[2020-10-19] MEDS: FUROSEMIDE INJ 10 MG/ML 4 ML VIAL IV SCH (08:47)
[2020-10-19 09:29] LABS: HEMATOCRIT 36.1 % (38.2-49.6); HEMOGLOBIN 11.5 g/dL (14.0-18.0); LYMPHOCYTES # (AUTO) 0.5 (1.0-3.2); MEAN CORPUSCULAR HGB CONC 31.9 g/dL (31-35); MEAN CORPUSCULAR VOLUME 90.9 fL (81-99); MONOCYTES # (AUTO) 0.3 (0.2-0.8); MONOCYTES % 3.9 % (4.4-11.3); NEUTROPHILS # (AUTO) 7.9 (2.1-6.9); NEUTROPHILS % 89.5 % (38.7-80.0); PLATELET COUNT 315 x10e3/uL (140-360); RED BLOOD COUNT 3.97 x10e6/uL (4.3-5.7); RED CELL DISTRIBUTION WIDTH 13.5 % (11.7-14.4)
[2020-10-19 09:54] LABS: CALCIUM 9.2 mg/dL (8.4-10.2); CREATININE, SERUM 1.49 mg/dL (0.72-1.25)
[2020-10-19] MEDS: HYDROCODONE/APAP 10MG-325MG TAB PO PRN (10:53)
[2020-10-19] MEDS ORDERED: ONDANSETRON HCL 4 MG ORAL DISINTEGRATING TAB PO PRN (11:45)
[2020-10-19] MEDS: LOSARTAN POTASSIUM 25 MG TAB PO SCH (12:14)
[2020-10-19] MEDS: TAMSULOSIN HCL 0.4 MG CAP PO SCH (20:55)
[2020-10-19] MEDS ORDERED: INSULIN GLARGINE 100 UNITS/ML VIAL SQ SCH (21:00)
[2020-10-20 01:25] VITALS: BP 129/80
[2020-10-20 05:49] VITALS: BP 143/87
[2020-10-20 06:09] LABS: BASOPHILS % 0.1 % (0.0-1.0); HEMATOCRIT 33.5 % (38.2-49.6); HEMOGLOBIN 10.6 g/dL (14.0-18.0); LYMPHOCYTES # (AUTO) 0.7 (1.0-3.2); MEAN CORPUSCULAR HGB CONC 31.6 g/dL (31-35); MEAN CORPUSCULAR VOLUME 91.5 fL (81-99); MONOCYTES # (AUTO) 0.6 (0.2-0.8); MONOCYTES % 6.5 % (4.4-11.3); NEUTROPHILS # (AUTO) 7.1 (2.1-6.9); NEUTROPHILS % 84.6 % (38.7-80.0); PLATELET COUNT 314 x10e3/uL (140-360); RED BLOOD COUNT 3.66 x10e6/uL (4.3-5.7); RED CELL DISTRIBUTION WIDTH 13.6 % (11.7-14.4)
[2020-10-20 06:51] LABS: ALBUMIN 2.2 g/dL (3.5-5.0); ALBUMIN/GLOBULIN RATIO 0.6 (0.8-2.0); ANION GAP 9.6 mmol/L (8-16); CREATININE, SERUM 1.33 mg/dL (0.72-1.25); POTASSIUM 4.6 mmol/L (3.5-5.1)
[2020-10-20 07:58] VITALS: BP 133/77
[2020-10-20 08:01] VITALS: BP 133/77
[2020-10-20] MEDS: INSULIN LISPRO 100 UNIT/1 ML 3ML VIAL SQ SCH ×4 (08:10→11:19)
[2020-10-20] MEDS: FOLIC ACID 1 MG TAB PO SCH (08:11)
[2020-10-20] MEDS: LOSARTAN POTASSIUM 25 MG TAB PO SCH (08:11)
[2020-10-20] MEDS: APIXABAN 5 MG TABLET PO SCH (08:11)
[2020-10-20] MEDS: ASPIRIN 81 MG CHEW TAB PO SCH (08:11)
[2020-10-20] MEDS: MULTIVITAMINS/MINERALS TAB PO SCH (08:12)
[2020-10-20] MEDS: THIAMINE HCL 100 MG TAB PO SCH (08:12)
[2020-10-20] MEDS: METOPROLOL TARTRATE 50 MG TAB PO SCH (08:12)
[2020-10-20] MEDS: METHYLPREDNISOLONE SOD SUCC 40 MG/ML VIAL 1ML IV SCH (08:13)
[2020-10-20] MEDS: LIDOCAINE 4% PATCH TP SCH (08:15)
[2020-10-20] MEDS ORDERED: FUROSEMIDE 40 MG TAB PO SCH (10:30)
[2020-10-20 11:14] VITALS: BP 123/82
[2020-10-20] MEDS ORDERED: PREDNISONE20 MG PO ×3 (11:48→11:53)
[2020-10-20] MEDS ORDERED: HUMALOG KW200 UNIT/1 SQ (14:22)
[2020-10-20] MEDS ORDERED: LANTUS 3ML100 UNITS/ SQ (14:23)
== END 2020-10-20 15:08 | disposition home or self-care (01) | DRG 871 ==
LOC: ER 11:58 → ERHOLD 18:17 → MED/SURG2 18:50 → IMCU 22:21 → OBSVTOIN 10-13 09:05 → INTOOBSV 10-13 09:05 → MED/SURG2 10-16 14:28
PROVIDERS: ADMIT Internal Medicine; ATTEND Internal Medicine
DX: A41.9 Sepsis, unspecified organism (principal); J15.9 Unspecified bacterial pneumonia; E87.1 Hypo-osmolality and hyponatremia; E87.2 Acidosis; N39.0 Urinary tract infection, site not specified; I48.20 Chronic atrial fibrillation, unspecified; I10 Essential (primary) hypertension; Z79.01 Long term (current) use of anticoagulants; E78.5 Hyperlipidemia, unspecified; I25.10 Atherosclerotic heart disease of native coronary artery without angina pectoris; Z95.5 Presence of coronary angioplasty implant and graft; E11.65 Type 2 diabetes mellitus with hyperglycemia; G47.33 Obstructive sleep apnea (adult) (pediatric); I12.9 Hypertensive chronic kidney disease with stage 1 through stage 4 chronic kidney disease, or unspecified chronic kidney disease; E11.22 Type 2 diabetes mellitus with diabetic chronic kidney disease; N18.31 Chronic kidney disease, stage 3a; E66.9 Obesity, unspecified; Z68.33 Body mass index [BMI] 33.0-33.9, adult; M06.9 Rheumatoid arthritis, unspecified; R52 Pain, unspecified; M05.20 Rheumatoid vasculitis with rheumatoid arthritis of unspecified site
CPT/HCPCS: 36415; 36569; 71045; 71260; 72157; 72158; 74176; 80048; 80053; 80061; 80162; 81001; 82140; 82150; 82947; 82948; 83036; 83605; 83690; 83735; 83880; 84100; 84439; 84443; 84478; 84484; 84550; 85025; 85610; 85651; 85730; 86021; 86039; 86140; 86200; 86431; 86631; 86738; 87040; 87086; 87449; 93005; 93306; 94660; 97139; 99285; G0378; J0456; J0610; J0692; J1160; J1170; J1815; J1885; J1940; J2270; J2405; J2920; J3370; J3411; J7030; J7040; J7050; Q9967; U0002